=== PATIENT | female | born 1945 | race Hispanic/Latino ===

== ENCOUNTER 2017-05-23 10:18 | Inpatient (IN) | payer MEDICARE ==
--- NOTE | 2017-05-23 11:13 | C.PDOC ---
History Of Present Illness 71 y/o female brought in by EMS for evaluation s/p slip and fall on wet floor 5 days ago. Patient states she fell hitting her left hip and striking her head. No LOC. Now complaining of ongoing back pain and left hip pain. Patient is ambulatory with pain. Denies any incontinence of urine or stool, numbness of lower extremities, or focal weakness. PMD: Samina Albright - [facility] Time Seen by Provider: 05/23/17 10:31 Chief Complaint (Nursing): Trauma History Per: Patient History/Exam Limitations: no limitations Injury Occurred (Timing): Days Ago: (5) Past Medical History Reviewed: Historical Data, Nursing Documentation, Vital Signs Vital Signs: Last Vital Signs Temp 98.1 F 05/24/17 05:00 Pulse 91 H 05/24/17 08:00 Resp 20 05/23/17 23:05 BP 132/81 05/24/17 05:00 Pulse Ox 97 05/23/17 23:05 - Medical History PMH: HTN Other Surgeries: Eye surgery Family History: States: No Known Family Hx - Social History Hx Alcohol Use: No Hx Substance Use: No - Immunization History Hx Tetanus Toxoid Vaccination: No Hx Influenza Vaccination: No Hx Pneumococcal Vaccination: No Review Of Systems Except As Marked, All Systems Reviewed And Found Negative. Musculoskeletal: Positive for: Back Pain, Other (Hip Pain) Physical Exam - Physical Exam Appears: Non-toxic, No Acute Distress Skin: Normal Color, Warm, Dry Head: Atraumatic, Normacephalic Eye(s): bilateral: Normal Inspection, PERRL, EOMI Nose: Normal Oral Mucosa: Moist Neck: Normal ROM, No Midline Cervical Tenderness, No Paracervical Tenderness, Supple Chest: Symmetrical Cardiovascular: Rhythm Regular, No Murmur Respiratory: Normal Breath Sounds, No Accessory Muscle Use, No Other ( respiratory distress) Gastrointestinal/Abdominal: Soft, No Tenderness, No Distention Back: No Vertebral Tenderness, Paraspinal Tenderness (paralumbar), No Straight Leg Raising Extremity: Tenderness (to left lateral hip), No Pedal Edema, No Deformity, Other (Neurovascularly intact) Pulses: Left Dorsalis Pedis: Normal, Right Dorsalis Pedis: Normal Neurological/Psych: Oriented x3, Normal Speech, Normal Cranial Nerves, Normal Motor, Normal Sensation, No Other ED Course And Treatment - Laboratory Results Result Diagrams: 05/24/17 07:00 05/24/17 07:00 ECG: Interpreted By Me, Viewed By Me ECG Rhythm: Sinus Tachycardia Interpretation Of ECG: Sinus Tachycardia with LVH, poor R -wave progression, ST segment depression in Leads V4, V5, and V6 Rate From EC O2 Sat by Pulse Oximetry: 98 (RA) Pulse Ox Interpretation: Normal - Other Rad X-RAY LS SPINE X-Ray: Viewed By Me, Read By Radiologist Interpretation: FINDINGS: BONES: No evidence of acute compression fractures no retropulsed fragments. Vertebral bodies exhibit normal stature. Vertebral bodies and facets normally aligned. DISC SPACES: Mild multilevel degenerative spondylosis. Changes include minor disc space narrowing with endplate eburnation and small anterolateral osteophyte formation. Facets are mildly hypertrophic L5-S1 through the L3-L4 levels in decreasing order of severity. OTHER FINDINGS: Advanced vascular calcifications of the abdominal aorta and iliac arteries. Multiple calcifications overlying the left upper abdomen of uncertain etiology though likely vascular in origin as well. IMPRESSION: No acute fractures. Minor multilevel degenerative spondylosis. X-RAY L HIP/PELVIS X-Ray: Viewed By Me, Read By Radiologist Interpretation: FINDINGS: BONES: Current study reveals no evidence of acute displaced fracture nor dislocation. The osseous structures appear intact. Both femoral heads appropriately located within the respective acetabula. JOINTS: Mild arthritic changes both hip joints. SOFT TISSUES: Vascular calcifications are present. OTHER FINDINGS: None. IMPRESSION: No definitive radiographic evidence of acute displaced fracture nor dislocation. If symptoms persist or occult fracture suspected clinically consider followup CT scan and or MRI for further evaluation. - CT Scan/US CT Head Other Rad Studies (CT/US): Read By Radiologist, Radiology Report Reviewed CT/US Interpretation: FINDINGS: HEMORRHAGE: N no acute parenchymal, subarachnoid or extra-axial hemorrhage. BRAIN: Mild moderate diffuse/ confluent chronic periventricular white matter ischemic changes seen extending peripherally into the deep and subcortical white matter both cerebral hemispheres. Discrete chronic appearing infarct in the left posterior temporal subcortical white matter also felt be present. Additionally, there are multiple bilateral basal nuclei lacunar type infarcts which are age indeterminate ; clinical correlation recommended. . . Note that the possibility of hyperacute infarct cannot be excluded on this study. Mild moderate generalized volume loss. Vascular calcifications present. VENTRICLES : No obstructive hydrocephalus. CALVARIUM: There are no acute calvarial fracture seen. PARANASAL SINUSES: Unremarkable as visualized. No significant inflammatory changes. MASTOID AIR CELLS: Unremarkable as visualized. No inflammatory changes. OTHER FINDINGS: There is oblong appearance of the right globe; recommend ophthalmologic - fundoscopic examination two rule out glaucoma. . IMPRESSION: No acute intracranial hemorrhage. Moderate chronic white matter ischemic changes as above. 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 Followup studies recommended if acute infarct suspected clinically. Mild moderate generalized volume loss. There is oblong appearance of the right globe; recommend ophthalmologic - fundoscopic examination two rule out glaucoma. Medical Decision Making Medical Decision Making: Impression: Hip and Back Pain s/p Fall Time: 10:51 Initial Plan: * EKG * Creatine phosphokinase * Troponin I * CMP * CBC * Morphine 2 mg IVP * Clonidine 0.1 mg PO * X-ray LS spine * X-ray left hip w/ pelvis * CT Head W/O contrast 11:36 No acute findings on X-Ray, will order CT of the left hip 12:51 Notified of critical labs: (+) Troponin 0.444. Total CK is 90. 13:41 Case has been d/c with Dr. Guzman. Patient will be admitted to Telemetry. [employer] has been notified. Disposition Counseled Patient/Family Regarding: Studies Performed, Diagnosis - Disposition Disposition: HOSPITALIZED Disposition Time: 13:34 Condition: FAIR - POA Present On Arrival: Falls Or Trauma - Clinical Impression Clinical Impression: NSTEMI (non-ST elevated myocardial infarction) - Scribe Statement The provider has reviewed the documentation as recorded by the Scribe (Gifty Tracy) Provider Attestation: All medical record entries made by the Scribe were at my direction and personally dictated by me. I have reviewed the chart and agree that the record accurately reflects my personal performance of the history, physical exam, medical decision making, and the department course for this patient. I have also personally directed, reviewed, and agree with the discharge instructions and disposition. Decision To Admit - Pt Status Changed To: Hospital Disposition Of: Inpatient - Admit Certification Admit to Inpatient:: After my assessment, the patient will require hospitalization for at least two midnights. This is because of the severity of symptoms shown, intensity of services needed, and/or the medical risk in this patient being treated as an outpatient. - InPatient: Physician Admission Certification: I certify that this patient requires 2 or more midnights of care for the following reason:: Yes - . Bed Request Type: Telemetry Patient Diagnosis: NSTEMI (non-ST elevated myocardial infarction)
--- NOTE | 2017-05-23 11:23 | RAD ---
PROCEDURE: Lumbar spine 05/23/2017 3 standard views lumbar spine performed. HISTORY: Fall. COMPARISON: No prior. FINDINGS: BONES: No evidence of acute compression fractures no retropulsed fragments. Vertebral bodies exhibit normal stature. Vertebral bodies and facets normally aligned. DISC SPACES: Mild multilevel degenerative spondylosis. Changes include minor disc space narrowing with endplate eburnation and small anterolateral osteophyte formation. Facets are mildly hypertrophic L5-S1 through the L3-L4 levels in decreasing order of severity. OTHER FINDINGS: Advanced vascular calcifications of the abdominal aorta and iliac arteries. Multiple calcifications overlying the left upper abdomen of uncertain etiology though likely vascular in origin as well. IMPRESSION: No acute fractures. Minor multilevel degenerative spondylosis.
--- NOTE | 2017-05-23 11:27 | RAD ---
PROCEDURE: Left hip dated 05/23/2017 HISTORY: Status post fall COMPARISON: No prior FINDINGS: BONES: Current study reveals no evidence of acute displaced fracture nor dislocation. The osseous structures appear intact. Both femoral heads appropriately located within the respective acetabula. JOINTS: Mild arthritic changes both hip joints SOFT TISSUES: Vascular calcifications are present OTHER FINDINGS: None. IMPRESSION: No definitive radiographic evidence of acute displaced fracture nor dislocation. If symptoms persist or occult fracture suspected clinically consider followup CT scan and or MRI for further evaluation.
[2017-05-23 12:04] LABS: BASO # 0.1 K/uL (0.0-0.2); BASO % 0.5 % (0.0-2.0); EOS # 0.1 K/uL (0.0-0.7); EOS % 0.5 % (0.0-4.0); HEMOGLOBIN 16.3 g/dL (11.0-16.0); LYMPH % 7.2 % (20.0-40.0); MEAN CELL VOLUME 87.6 fL (81.0-99.0); MEAN CORPUSCULAR HEMOGLOBIN 29.4 pg (27.0-31.0); MEAN CORPUSCULAR HGB CONC 33.6 g/dL (33.0-37.0); MEAN PLATELET VOLUME 7.3 fL (7.2-11.7); MONO # 0.4 K/uL (0.0-0.8); MONO % 2.9 % (0.0-10.0); NEUT % 88.9 % (50.0-75.0); PLATELET COUNT 348 K/uL (130-400); RBC 5.55 Mil/uL (3.80-5.20); RED CELL DISTRIBUTION WIDTH 14.8 % (11.5-14.5); WHITE BLOOD COUNT 13.5 K/uL (4.8-10.8)
[2017-05-23 12:20] LABS: ALB/GLOB RATIO 0.9 (1.0-2.1); ALBUMIN 4.3 g/dL (3.5-5.0); CALCIUM 9.5 mg/dl (8.6-10.4)
[2017-05-23 12:23] LABS: BANDS 3 % (0-2); BASOPHIL 1 % (0-2); EOSINOPHIL 1 % (0-4); LYMPHOCYTE 6 % (20-40); MONOCYTE 3 % (0-10); NEUTROPHIL 86 % (50-75); TOTAL CELLS COUNTED 100
[2017-05-23 12:24] LABS: PLATELET ESTIMATE NORMAL (NORMAL)
--- NOTE | 2017-05-23 12:24 | CT ---
PROCEDURE: CT HEAD WITHOUT CONTRAST. HISTORY: dizziness COMPARISON: No prior is available for comparison TECHNIQUE: Axial computed tomography images were obtained through the head/brain without intravenous contrast. Radiation dose: Total exam DLP = 1641.55 mGy-cm. This CT exam was performed using one or more of the following dose reduction techniques: Automated exposure control, adjustment of the mA and/or kV according to patient size, and/or use of iterative reconstruction technique. FINDINGS: HEMORRHAGE: N no acute parenchymal, subarachnoid or extra-axial hemorrhage. BRAIN: Mild moderate diffuse/confluent chronic periventricular white matter ischemic changes seen extending peripherally into the deep and subcortical white matter both cerebral hemispheres. Discrete chronic appearing infarct in the left posterior temporal subcortical white matter also felt be present. Additionally, there are multiple bilateral basal nuclei lacunar type infarcts which are age indeterminate ; clinical correlation recommended. . . Note that the possibility of hyperacute infarct cannot be excluded on this study Mild moderate generalized volume loss. Vascular calcifications present. VENTRICLES: No obstructive hydrocephalus. CALVARIUM: There are no acute calvarial fracture seen. PARANASAL SINUSES: Unremarkable as visualized. No significant inflammatory changes. MASTOID AIR CELLS: Unremarkable as visualized. No inflammatory changes. OTHER FINDINGS: There is oblong appearance of the right globe; recommend ophthalmologic - fundoscopic examination two rule out glaucoma. . IMPRESSION: No acute intracranial hemorrhage. Moderate chronic white matter ischemic changes as above. 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 Followup studies recommended if acute infarct suspected clinically Mild moderate generalized volume loss. There is oblong appearance of the right globe; recommend ophthalmologic - fundoscopic examination two rule out glaucoma.
[2017-05-23 12:52] LABS: TROPONIN I 0.444 ng/mL (0.00-0.120)
--- NOTE | 2017-05-23 14:38 | CT ---
PROCEDURE: CT scan left hip dated 05/23/2017 HISTORY: Hip injury. COMPARISON: Comparison made with left hip radiographs obtained earlier same day TECHNIQUE: Contiguous axial images of the left hip were obtained. Coronal and sagittal reformats were generated. This CT exam was performed using one or more of the following dose reduction techniques: Automated exposure control, adjustment of the mA and/or kV according to patient size, and/or use of iterative reconstruction technique. Radiation dose: Total DLP = 195.18 mGy-cm. FINDINGS: BONES: Current study reveals no evidence of acute displaced fracture nor dislocation. The osseous structures intact. The visualized portions of the left iliac bone and left aspect of the sacrum appear intact. SI joints also intact. LEFT HIP JOINT: Left femoral head is appropriately located within the left acetabulum. No significant degenerative osteoarthritis. Probable small enthesophyte arising from the superior margin of the left greater trochanter. SOFT TISSUES: Soft tissues appear grossly unremarkable Urinary bladder is markedly distended. Uterus appears unremarkable. Few scattered colonic diverticula however no radiographic evidence acute diverticulitis. Vascular calcifications are present IMPRESSION: No evidence of acute displaced fracture nor dislocation.
[2017-05-23] MEDS ORDERED: Pneumococcal 23-Valent Vaccine IM ONE (15:32)
--- NOTE | 2017-05-23 16:01 | CP.PCM.HP ---
History of Present Illness - History of Present Illness History of Present Illness: HPI: Patient is a 71 year old female with a past medical history of hypertension, bilateral glaucoma, TIA, who presents to the ER with left hip pain. The patient states she slipped on a wet floor and fell 5 days ago. She landed on her left hip and the back of her head. The patient normally walks without phlebotomist medical lab assistant, however, for the past 5 days, she has required assistance due to the left hip pain. Patient states her daughter has been giving her 3 Tylenol per day, which has helped her pain. She states that the pain increases with movement and decreases with rest. Patient currently complains of weakness, rapid heart rate/palpitations, and nausea. In the ED, troponin was elevated at 0.444. Patient admitted for NSTEMI. She denies frequent falls, dizziness, headaches, new vision changes, dyspnea, chest pain, abdominal pain, vomiting, leg pain, leg swelling, dysuria, hematuria, diarrhea, constipation, hematochezia , melena. PMD: Dr. Moeller in [facility] (recently moved to [place]) PMHx: hypertension, bilateral glaucoma, TIA (patient states her doctor told her she had a stroke but does not have any symptoms- 6 years ago), basal cell skin cancer SurgHx: "eye surgery" (1967) FamHx: father- brain cancer SocHx: denies tobacco, alcohol, and drug use; lives in [place] with duaghter and grandson; retired. Allergies: Sulfa Medications: Clonidine 0.1mg PO HS, Amlodipine 5mg PO BID Present on Admission - Present on Admission Any Indicators Present on Admission: No Review of Systems - Constitutional Constitutional: Weakness. absent: Chills, Excessive Sweating, Fever, Headache - EENT Eyes: Other (no new changes in vision; glaucoma b/l; left eye vision intact) Ears: absent: Dizziness - Cardiovascular Cardiovascular: Palpitations, Rapid Heart Rate. absent: Chest Pain, Dyspnea, Edema, Leg Edema - Respiratory Respiratory: absent: Dyspnea - Gastrointestinal Gastrointestinal: Nausea. absent: Abdominal Pain, Constipation, Diarrhea, Hematemesis, Hematochezia, Vomiting - Genitourinary Genitourinary: absent: Dysuria, Hematuria, Urinary Frequency - Integumentary Integumentary: absent: Bleeding Lesions, Non-Healing Lesions, Sores, Unusual Bruising, Wounds - Neurological Neurological: Weakness. absent: Dizziness - Endocrine Endocrine: Palpitations - Hematologic/Lymphatic Hematologic: absent: Easy Bleeding, Easy Bruising Past Patient History - Past Social History Smoking Status: Never Smoked - CARDIAC Hx Cardiac Disorders: No Hx Angina: No Hx Atrial Fibrillation: No Hx Cardia Arrhythmia: No Hx Circulatory Problems: No Hx Congestive Heart Failure: No Hx Heart Attack: No Hx Heart Murmur: No Hx Heart Transplant: No Hx Hypercholesterolemia: No Hx Hypertension: Yes Hx Hypotension: No Hx Internal Defibrillator: No Hx Mitral Valve Prolapse: No Hx Pacemaker: No Hx Peripheral Edema: No Hx Peripheral Vascular Disease: No - PULMONARY Hx Asthma: Yes - HEENT Hx Glaucoma: Yes - INTEGUMENTARY Hx Basil Cell: Yes (forehead) - MUSCULOSKELETAL/RHEUMATOLOGICAL Hx Arthritis: No Hx Back Pain: Yes Hx Falls: Yes Hx Fractures: No - GASTROINTESTINAL HX Swallowing Problems: Yes - PSYCHIATRIC Hx Substance Use: No - SURGICAL HISTORY Hx Surgeries: Yes Hx Eye Surgery: Yes - ANESTHESIA Hx Anesthesia: Yes Hx Anesthesia Reactions: No Meds Allergies/Adverse Reactions: Allergies Allergy/AdvReac Type Severity Reaction Status Date / Time Sulfa (Sulfonamide Allergy Mild RASH Verified 05/23/17 11:49 Antibiotics) Physical Exam - Constitutional Appears: No Acute Distress, Chronically Ill - Head Exam Head Exam: ATRAUMATIC (no tenderness, skin lesions, ecchymosis noted), NORMAL INSPECTION - Eye Exam Eye Exam: EOMI (right eye). absent: Normal appearance (glaucoma b/l; blind in right eye) - ENT Exam ENT Exam: Mucous Membranes Dry Additional comments: poor dentition - Respiratory Exam Respiratory Exam: Clear to Auscultation Bilateral, NORMAL BREATHING PATTERN. absent: Rales, Rhonchi, Wheezes, Respiratory Distress - Cardiovascular Exam Cardiovascular Exam: Tachycardia, Irregular Rhythm, +S1, +S2 - GI/Abdominal Exam GI & Abdominal Exam: Normal Bowel Sounds, Soft. absent: Distended, Firm, Guarding, Tenderness - Extremities Exam Extremities exam: Positive for: pedal pulses present. Negative for: pedal edema , tenderness Additional comments: Bilateral LE: no tenderness, ecchymosis, erythema, abrasions, contusions and skin lesions noted. Full ROM of left LE; pain in left hip when actively and passively raising right LE; pulses present b/l. - Back Exam Back exam: absent: tenderness - Neurological Exam Neurological exam: Alert, CN II-XII Intact, Oriented x3 Additional comments: Oriented to person, place, time; technology lead intact; Full ROM and strength of UE (b/l) and left LE; decreased ROM of right LE due to pain in left hip. Finger to nose exam normal. - Psychiatric Exam Psychiatric exam: Flat Affect - Skin Skin Exam: Dry, Warm Results - Vital Signs Recent Vital Signs: Last Vital Signs Temp 98.0 F 05/23/17 13:09 Pulse 85 05/23/17 13:50 Resp 18 05/23/17 14:19 BP 163/102 H 05/23/17 13:50 Pulse Ox 98 05/23/17 14:16 - Labs Result Diagrams: 05/23/17 12:01 05/23/17 12:01 Labs: Laboratory Results - last 24 hr 05/23/17 05/23/17 12:01 12:01 WBC 13.5 H RBC 5.55 H Hgb 16.3 H Hct 48.6 H MCV 87.6 MCH 29.4 MCHC 33.6 RDW 14.8 H Plt Count 348 MPV 7.3 Neut % (Auto) 88.9 H Lymph % (Auto) 7.2 L Barber % (Auto) 2.9 Eos % (Auto) 0.5 Baso % (Auto) 0.5 Neut # (Auto) 12.0 H Lymph # (Auto) 1.0 Barber # (Auto) 0.4 Eos # (Auto) 0.1 Baso # (Auto) 0.1 Neutrophils % (Manual) 86 H Band Neutrophils % 3 H Lymphocytes % (Manual) 6 L Monocytes % (Manual) 3 Eosinophils % (Manual) 1 Basophils % (Manual) 1 Platelet Estimate Normal Sodium 142 Potassium 4.3 Chloride 102 Carbon Dioxide 20 L Anion Gap 25 H BUN 41 H Creatinine 1.7 H Est GFR ( Amer) 36 Est GFR (Non-Af Amer) 30 Random Glucose 100 Calcium 9.5 Total Bilirubin 1.9 H AST 673 H ALT 1271 H Alkaline Phosphatase 110 Total Creatine Kinase 90 Troponin I 0.4440 H* Total Protein 9.1 H Albumin 4.3 Globulin 4.8 H Albumin/Globulin Ratio 0.9 L Assessment & Plan (1) NSTEMI (non-ST elevated myocardial infarction) Assessment and Plan: Troponin 0.444; f/u troponins x2 EKG: sinus tachycardia @101bpm; LVH; f/u EKGx2 In the ED, ASA 325mg PO given Cardiology consulted- Dr. Mejias, help appreciated Continue to monitor on telemetry Echocardiogram: f/u report TSH/Free T4: f/u results Lipid panel: f/u results A1c: f/u results Ddimer: f/u results Crestor 20mg PO HS Amlodipine 5mg PO BID ASA 81mg PO daily Status: Acute (2) Fall Assessment and Plan: Head CT: No acute intracranial hemorrhage. Moderate chronic white matter ischemic changes as above. 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 Followup studies recommended if acute infarct suspected clinically; Mild moderate generalized volume loss. There is oblong appearance of the right globe; recommend ophthalmologic - fundoscopic examination two rule out glaucoma. Lumbar spine xray: No acute fractures. Minor multilevel degenerative spondylosis. Hip xray: No evidence of acute displaced fracture nor dislocation. Lower extremity CT: No evidence of acute displaced fracture nor dislocation. Status: Acute (3) Hypertension Assessment and Plan: Home medications: amlodipine 5mg PO BID, clonidine 0.1mg PO HS Continue amlodipine 5mg PO BID Continue to monitor Status: Acute (4) Leukocytosis Assessment and Plan: Leukocytosis w/bandemia at admission (WBC 13.5, bands 3) Afebrile UA: f/u results Urine cx: f/u results Blood cx: f/u results Status: Acute (5) Elevated transaminase level Assessment and Plan: At admission: AST/ALT: 673/1271 Hepatitis panel: f/u results HIV1/2: f/u results Status: Acute (6) Prophylactic measure Assessment and Plan: DVT: SCDs, Lovenox 40mg SC daily GI: Protonix 40mg PO daily Heart healthy diet PT/OT Status: Acute
[2017-05-23 17:59] LABS: T4 8.66 ug/dL (5.5-11.0)
[2017-05-23 18:15] LABS: HEPATITIS B SURFACE AG Negative (NEGATIVE)
[2017-05-23 18:21] LABS: HEPATITIS A IGM NEGATIVE (NEGATIVE); HEPATITIS B CORE AB NEGATIVE (NEGATIVE)
[2017-05-23 18:32] LABS: HEPATITIS C ANTIBODY NEGATIVE (NEGATIVE)
[2017-05-23 19:00] LABS: CK-MB 2.51 ng/mL (0.0-3.38); TROPONIN I 0.427 ng/mL (0.00-0.120)
[2017-05-23 22:40] LABS: CK-MB 2.1 ng/mL (0.0-3.38); TROPONIN I 0.398 ng/mL (0.00-0.120)
--- NOTE | 2017-05-24 07:23 | CP.PCM.PN ---
Subjective - Date & Time of Evaluation Date of Evaluation: 05/24/17 Time of Evaluation: 07:23 - Subjective Subjective: Medicine progress note for Dr. Guzman's service Patient was seen and examined at bedside in no acute distress. Patient reports she still has been in her left hip and cannot move due to the pain. She says her pain is decreased when she is at rest. Patient states she felt nauseas earlier, but currently she does not "because she is not moving around". Patient has little appetite- full tray of food in front of patient, only had a few sips of soup. Patient denies chest pain, abdominal pain, vomiting, fevers, headaches. Per nurse, patient has had very low urine output, bladder scan showed 600cc and patient was straight cathed (removed 500cc of urine). Objective - Vital Signs/Intake and Output Vital Signs (last 24 hours): Temp Pulse Resp BP Pulse Ox 98.1 F 97 H 20 132/81 97 05/24/17 05:00 05/24/17 05:00 05/23/17 23:05 05/24/17 05:00 05/23/17 23:05 Intake and Output: 05/24/17 05/24/17 06:59 18:59 Intake Total 120 Output Total 0 Balance 120 - Medications Medications: Current Medications Amlodipine Besylate (Norvasc) 5 mg PO BID [facility] Aspirin (Ecotrin) 81 mg PO DAILY [facility] Enoxaparin Sodium (Lovenox) 40 mg SC DAILY [facility] Morphine Sulfate (Morphine) 1 mg IVP Q4 PRN PRN Reason: Pain, moderate (4-7) Last Admin: 05/24/17 05:15 Dose: 1 mg Pantoprazole Sodium (Protonix Ec Tab) 40 mg PO DAILY [facility] Rosuvastatin Calcium (Crestor) 20 mg PO HS [facility] Last Admin: 05/23/17 21:46 Dose: 20 mg - Labs Labs: 05/23/17 12:01 05/23/17 12:01 - Additional Findings Additional findings: - Constitutional Appears: No Acute Distress, Chronically Ill - Head Exam Head Exam: ATRAUMATIC (no tenderness, skin lesions, ecchymosis noted), NORMAL INSPECTION - Eye Exam Eye Exam: EOMI (right eye). absent: Normal appearance (glaucoma b/l; blind in right eye) - ENT Exam ENT Exam: Mucous Membranes Dry Additional comments: poor dentition; hard of hearing b/l - Respiratory Exam Respiratory Exam: Clear to Auscultation Bilateral, NORMAL BREATHING PATTERN. absent: Rales, Rhonchi, Wheezes, Respiratory Distress - Cardiovascular Exam Cardiovascular Exam: Tachycardia, Irregular Rhythm, +S1, +S2 - GI/Abdominal Exam GI & Abdominal Exam: Normal Bowel Sounds, Soft. absent: Distended, Firm, Guarding, Tenderness - Extremities Exam Extremities exam: Positive for: pedal pulses present. Negative for: pedal edema , tenderness Additional comments: Bilateral LE: no tenderness, ecchymosis, erythema, abrasions, contusions and skin lesions noted. Full ROM of left LE; pain in left hip when actively and passively raising right LE; pulses present b/l. - Back Exam Back exam: absent: tenderness - Neurological Exam Neurological exam: Alert, CN II-XII Intact, Oriented x3 Additional comments: Oriented to person, place, time, president; staff readiness officer intact; Full ROM and strength of UE (b/l) and left LE; decreased ROM of right LE due to pain in left hip. Finger to nose exam normal. - Psychiatric Exam Psychiatric exam: Flat Affect - Skin Skin Exam: Dry, Warm Assessment and Plan (1) NSTEMI (non-ST elevated myocardial infarction) Status: Acute (2) Fall Status: Acute (3) Hypertension Status: Acute (4) Leukocytosis Status: Acute (5) Elevated transaminase level Status: Acute (6) Prophylactic measure Status: Acute - Assessment and Plan (Free Text) Plan: (1) NSTEMI (non-ST elevated myocardial infarction) Assessment and Plan: Troponin 0.444-->0.427-->0.3980 EKG: sinus tachycardia @101bpm; LVH In the ED, ASA 325mg PO given Cardiology consulted- Dr. Mejias, help appreciated Continue to monitor on telemetry TSH/Free T4: 2.69/8.66 Lipid panel: TG 162, Chol 151, LDL 49, HDL 44 A1c: 5.3 Ddimer: 1965 VQ scan: low probability of pE Echocardiogram: EF 40%, Mild global hypokinesis, LVH Patient scheduled for Stress test on 05/25 Crestor 20mg PO HS Amlodipine 5mg PO BID ASA 81mg PO daily (2) Fall Assessment and Plan: Orthopedic surgery consulted, Dr. Wei, help appreciated Head CT: No acute intracranial hemorrhage. Moderate chronic white matter ischemic changes as above. 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 Followup studies recommended if acute infarct suspected clinically; Mild moderate generalized volume loss. There is oblong appearance of the right globe; recommend ophthalmologic - fundoscopic examination two rule out glaucoma. Lumbar spine xray: No acute fractures. Minor multilevel degenerative spondylosis. Hip xray: No evidence of acute displaced fracture nor dislocation. Lower extremity CT: No evidence of acute displaced fracture nor dislocation. Brain MRI: f/u report (3) Hypertension Assessment and Plan: Home medications: amlodipine 5mg PO BID, clonidine 0.1mg PO HS Continue amlodipine 5mg PO BID Lisinopril 10mg PO daily (active 05/24/17) Continue to monitor (4) Leukocytosis Assessment and Plan: Leukocytosis w/bandemia at admission (WBC 13.5, bands 3) Afebrile UA: 3+ protein Urine cx: f/u results Blood cx: negative (5) Elevated transaminase level Assessment and Plan: Trending down At admission: AST/ALT: 673/1271 Hepatitis panel: negative HIV1/2: negative Acetaminophen level: <10 Abdominal US: fatter liver infiltrate; 1/5cm simple cyst in right lobe of liver ; 1cm simple cyst in lower pole of right kidney (6) Prophylactic measure Assessment and Plan: DVT: SCDs, Lovenox 40mg SC daily GI: Protonix 40mg PO daily Heart healthy diet PT/OT NS@75mls/hr
[2017-05-24 07:35] LABS: BASO # 0.1 K/uL (0.0-0.2); BASO % 0.9 % (0.0-2.0); EOS # 0.4 K/uL (0.0-0.7); MEAN CORPUSCULAR HEMOGLOBIN 29.6 pg (27.0-31.0); MEAN PLATELET VOLUME 7.5 fL (7.2-11.7); MONO # 0.5 K/uL (0.0-0.8); MONO % 4.1 % (0.0-10.0); NEUT # 10.2 K/uL (1.8-7.0); NRBC % 0.1 % (0.0-2.0); PLATELET COUNT 346 K/uL (130-400); RBC 4.83 Mil/uL (3.80-5.20); RED CELL DISTRIBUTION WIDTH 14.5 % (11.5-14.5); WHITE BLOOD COUNT 12.2 K/uL (4.8-10.8)
[2017-05-24 07:40] LABS: ALBUMIN 3.6 g/dL (3.5-5.0)
[2017-05-24 07:44] LABS: HEMOGLOBIN 14.3 g/dL (11.0-16.0)
[2017-05-24] MEDS: Sodium Chloride 0.9% 1,000 ML IV SCH ×2 (08:00→20:30)
[2017-05-24] MEDS ORDERED: Potassium Chloride 20 mEq ER Tab PO ONE (08:10)
[2017-05-24 08:27] LABS: BANDS 1 % (0-2); EOSINOPHIL 5 % (0-4); LYMPHOCYTE 9 % (20-40); MONOCYTE 2 % (0-10); NEUTROPHIL 83 % (50-75); PLATELET ESTIMATE NORMAL (NORMAL); TOTAL CELLS COUNTED 100
--- NOTE | 2017-05-24 08:43 | RAD ---
HISTORY: pre-vq scan COMPARISON: No prior. FINDINGS: LUNGS: No active pulmonary disease. PLEURA: No significant pleural effusion identified, no pneumothorax apparent. CARDIOVASCULAR: Normal. OSSEOUS STRUCTURES: No significant abnormalities. VISUALIZED UPPER ABDOMEN: Normal. OTHER FINDINGS: None. IMPRESSION: No active disease.
--- NOTE | 2017-05-24 09:50 | US ---
HISTORY: transaminitis COMPARISON: None. TECHNIQUE: Sonographic evaluation of the right upper quadrant of the abdomen. FINDINGS: LIVER: Measures 11.8 cm in length. Diffusely increased echogenicity of the liver parenchyma. Consistent with fatty infiltration. Smooth contour. Simple cyst right hepatic lobe, 1.5 x 1.3 x 1.5 cm. No solid mass. . No intrahepatic biliary ductal dilatation. GALLBLADDER: Unremarkable. No gallstones. COMMON BILE DUCT: Measures 3 mm. No stones. No dilatation. PANCREAS: Unremarkable as visualized. No mass. No ductal dilatation. RIGHT KIDNEY: Measures 10.2 cm in length. Normal echogenicity. No calculus or hydronephrosis. Lower pole simple cortical cyst, 1.0 cm. No solid mass. AORTA: No aneurysmal dilatation. IVC: Unremarkable. OTHER FINDINGS: None . IMPRESSION: Fatty infiltration of the liver. 1.5 cm simple cyst in right lobe of liver. 1.0 cm simple cyst lower pole right kidney. No evidence of cholelithiasis or biliary obstruction.
[2017-05-24] MEDS ORDERED: Enoxaparin 40 mg Syringe SC SCH (10:00)
[2017-05-24] MEDS: Pantoprazole 40 mg EC Tab PO SCH (11:34)
--- NOTE | 2017-05-24 12:43 | NM ---
COMPARISON: 05/24/2017 single-view chest TECHNIQUE: 11.4 mCi technetium 99-m Xe-133 Gas. 3.4 mCI technetium 99-m MAA administered intravenously. FINDINGS: VENTILATION COMPONENT: Normal. PERFUSION COMPONENT: Heterogeneous distribution of radionuclide. No geographic, segmental, lobar abnormalities apparent on the present examination. IMPRESSION: Low probability ventilation perfusion scan for pulmonary embolism.
[2017-05-24 21:02] LABS: URINE BILIRUBIN NEGATIVE (NEGATIVE); URINE BLOOD NEGATIVE (NEGATIVE); URINE CLARITY Clear (Clear); URINE COLOR Yellow (YELLOW); URINE GLUCOSE (UA) NORMAL (Normal); URINE LEUKOCYTE ESTERASE NEG Leu/uL (Negative); URINE PROTEIN 3+ mg/dL (NEGATIVE); URINE UROBILINOGEN NORMAL mg/dL (0.2-1.0)
--- NOTE | 2017-05-24 21:26 | CP.PCM.CON ---
History of Present Illness - History of Present Illness History of Present Illness: CC: Abnormal troponin HPI: Patient is a 71 year old female with a past medical history of hypertension, bilateral glaucoma, TIA, who presents to the ER with left hip pain. The patient states she slipped on a wet floor and fell 5 days ago. She landed on her left hip and the back of her head. The patient normally walks without child care assistant, however, for the past 5 days, she has required assistance due to the left hip pain. Patient states her daughter has been giving her 3 Tylenol per day, which has helped her pain. She states that the pain increases with movement and decreases with rest. Patient currently complains of weakness, rapid heart rate/palpitations, and nausea. In the ED, troponin was elevated at 0.444. Patient admitted for NSTEMI. She denies frequent falls, dizziness, headaches, new vision changes, dyspnea, chest pain, abdominal pain, vomiting, leg pain, leg swelling, dysuria, hematuria, diarrhea, constipation, hematochezia , melena. PMD: Dr. Moeller in [facility] (recently moved to [place]) PMHx: hypertension, bilateral glaucoma, TIA (patient states her doctor told her she had a stroke but does not have any symptoms- 6 years ago), basal cell skin cancer SurgHx: "eye surgery" (1967) FamHx: father- brain cancer SocHx: denies tobacco, alcohol, and drug use; lives in [place] with duaghter and grandson; retired. Allergies: Sulfa Medications: Clonidine 0.1mg PO HS, Amlodipine 5mg PO BID Review of Systems - Constitutional Constitutional: Weakness. absent: Chills, Excessive Sweating, Fever, Headache - EENT Eyes: Other (no new changes in vision; glaucoma b/l; left eye vision intact) Ears: absent: Dizziness - Cardiovascular Cardiovascular: Palpitations, Rapid Heart Rate. absent: Chest Pain, Dyspnea, Edema, Leg Edema - Respiratory Respiratory: absent: Dyspnea - Gastrointestinal Gastrointestinal: Nausea. absent: Abdominal Pain, Constipation, Diarrhea, Hematemesis, Hematochezia, Vomiting - Genitourinary Genitourinary: absent: Dysuria, Hematuria, Urinary Frequency - Integumentary Integumentary: absent: Bleeding Lesions, Non-Healing Lesions, Sores, Unusual Bruising, Wounds - Neurological Neurological: Weakness. absent: Dizziness - Endocrine Endocrine: Palpitations - Hematologic/Lymphatic Hematologic: absent: Easy Bleeding, Easy Bruising Physical Exam - Constitutional Appears: No Acute Distress, Chronically Ill - Head Exam Head Exam: ATRAUMATIC (no tenderness, skin lesions, ecchymosis noted), NORMAL INSPECTION - Eye Exam Eye Exam: EOMI (right eye). absent: Normal appearance (glaucoma b/l; blind in right eye) - ENT Exam ENT Exam: Mucous Membranes Dry Additional comments: poor dentition - Respiratory Exam Respiratory Exam: Clear to Auscultation Bilateral, NORMAL BREATHING PATTERN. absent: Rales, Rhonchi, Wheezes, Respiratory Distress - Cardiovascular Exam Cardiovascular Exam: Tachycardia, Irregular Rhythm, +S1, +S2 - GI/Abdominal Exam GI & Abdominal Exam: Normal Bowel Sounds, Soft. absent: Distended, Firm, Guarding, Tenderness - Extremities Exam Extremities exam: Positive for: pedal pulses present. Negative for: pedal edema , tenderness Additional comments: Bilateral LE: no tenderness, ecchymosis, erythema, abrasions, contusions and skin lesions noted. Full ROM of left LE; pain in left hip when actively and passively raising right LE; pulses present b/l. - Back Exam Back exam: absent: tenderness - Neurological Exam Neurological exam: Alert, CN II-XII Intact, Oriented x3 Additional comments: Oriented to person, place, time; chemical dependency nurse intact; Full ROM and strength of UE (b/l) and left LE; decreased ROM of right LE due to pain in left hip. Finger to nose exam normal. - Psychiatric Exam Psychiatric exam: Flat Affect - Skin Skin Exam: Dry, Warm Past Patient History - Past Social History Smoking Status: Never Smoked - CARDIAC Hx Hypertension: Yes - PULMONARY Hx Asthma: Yes - HEENT Hx Glaucoma: Yes - INTEGUMENTARY Hx Basil Cell: Yes (forehead) - MUSCULOSKELETAL/RHEUMATOLOGICAL Hx Arthritis: No Hx Back Pain: Yes Hx Falls: Yes Hx Fractures: No - GASTROINTESTINAL HX Swallowing Problems: Yes - PSYCHIATRIC Hx Substance Use: No - SURGICAL HISTORY Hx Surgeries: Yes Hx Eye Surgery: Yes - ANESTHESIA Hx Anesthesia: Yes Hx Anesthesia Reactions: No Meds Allergies/Adverse Reactions: Allergies Allergy/AdvReac Type Severity Reaction Status Date / Time Sulfa (Sulfonamide Allergy Mild RASH Verified 05/23/17 11:49 Antibiotics) - Medications Medications: Current Medications Amlodipine Besylate (Norvasc) 5 mg PO BID [facility] Last Admin: 05/24/17 17:44 Dose: 5 mg Aspirin (Ecotrin) 81 mg PO DAILY [facility] Last Admin: 05/24/17 11:35 Dose: 81 mg Enoxaparin Sodium (Lovenox) 40 mg SC DAILY [facility] Last Admin: 05/24/17 10:00 Dose: 40 mg Sodium Chloride (Sodium Chloride 0.9%) 1,000 mls @ 75 mls/hr IV .[id number] [facility] Last Admin: 05/24/17 08:00 Dose: 75 mls/hr Morphine Sulfate (Morphine) 1 mg IVP Q4 PRN PRN Reason: Pain, moderate (4-7) Last Admin: 05/24/17 17:45 Dose: 1 mg Pantoprazole Sodium (Protonix Ec Tab) 40 mg PO DAILY [facility] Last Admin: 05/24/17 11:34 Dose: 40 mg Rosuvastatin Calcium (Crestor) 20 mg PO [facility] Last Admin: 05/23/17 21:46 Dose: 20 mg Results - Vital Signs Recent Vital Signs: Last Vital Signs Temp 98.5 F 05/24/17 16:00 Pulse 98 H 05/24/17 16:00 Resp 18 05/24/17 16:00 BP 153/80 H 05/24/17 16:00 Pulse Ox 95 05/24/17 16:00 - Labs Result Diagrams: 05/24/17 07:00 05/24/17 07:00 Labs: Laboratory Results - last 24 hr 05/23/17 05/24/17 05/24/17 22:08 00:52 07:00 WBC 12.2 H RBC 4.83 Hgb 14.3 D Hct 42.0 MCV 87.0 MCH 29.6 MCHC 34.0 RDW 14.5 Plt Count 346 MPV 7.5 Neut % (Auto) 84.0 H Lymph % (Auto) 8.0 L Coles % (Auto) 4.1 Eos % (Auto) 3.0 Baso % (Auto) 0.9 Neut # (Auto) 10.2 H Lymph # (Auto) 1.0 Coles # (Auto) 0.5 Eos # (Auto) 0.4 Baso # (Auto) 0.1 Neutrophils % (Manual) 83 H Band Neutrophils % 1 Lymphocytes % (Manual) 9 L Monocytes % (Manual) 2 Eosinophils % (Manual) 5 H Platelet Estimate Normal Sodium Potassium Chloride Carbon Dioxide Anion Gap BUN Creatinine Est GFR ( Amer) Est GFR (Non-Af Amer) Random Glucose Calcium Total Bilirubin AST ALT Alkaline Phosphatase Total Creatine Kinase 56 CK-MB (Mass) 2.10 Troponin I 0.3980 H* Total Protein Albumin Globulin Albumin/Globulin Ratio Urine Color Urine Clarity Urine pH Ur Specific [place] Urine Protein Urine Glucose (UA) Urine Ketones Urine Blood Urine Nitrate Urine Bilirubin Urine Urobilinogen Ur Leukocyte Esterase Urine WBC (Auto) Urine RBC (Auto) Acetaminophen < 10.0 L 05/24/17 05/24/17 07:00 20:56 WBC RBC Hgb Hct MCV MCH MCHC RDW Plt Count MPV Neut % (Auto) Lymph % (Auto) Coles % (Auto) Eos % (Auto) Baso % (Auto) Neut # (Auto) Lymph # (Auto) Coles # (Auto) Eos # (Auto) Baso # (Auto) Neutrophils % (Manual) Band Neutrophils % Lymphocytes % (Manual) Monocytes % (Manual) Eosinophils % (Manual) Platelet Estimate Sodium 141 Potassium 3.5 L Chloride 105 Carbon Dioxide 22 Anion Gap 18 BUN 47 H Creatinine 1.5 H Est GFR ( Amer) 41 Est GFR (Non-Af Amer) 34 Random Glucose 100 Calcium 9.0 Total Bilirubin 1.2 AST 190 H D ALT 693 H D Alkaline Phosphatase 93 Total Creatine Kinase CK-MB (Mass) Troponin I Total Protein 7.3 Albumin 3.6 Globulin 3.7 Albumin/Globulin Ratio 1.0 Urine Color Yellow Urine Clarity Clear Urine pH 5.0 Ur Specific [place] 1.026 Urine Protein 3+ H Urine Glucose (UA) Normal Urine Ketones Trace Urine Blood Negative Urine Nitrate Negative Urine Bilirubin Negative Urine Urobilinogen Normal Ur Leukocyte Esterase Neg Urine WBC (Auto) < 1 Urine RBC (Auto) < 1 Acetaminophen Assessment & Plan - Assessment and Plan (Free Text) Assessment: (1) NSTEMI (non-ST elevated myocardial infarction) Assessment and Plan: Troponin 0.444-->0.427-->0.3980 EKG: sinus tachycardia @101bpm; LVH In the ED, ASA 325mg PO given Cardiology consulted- Dr. Mejias, help appreciated Continue to monitor on telemetry TSH/Free T4: 2.69/8.66 Lipid panel: TG 162, Chol 151, LDL 49, HDL 44 A1c: 5.3 Ddimer: 1964 VQ scan: low probability of pE Echocardiogram: f/u report Crestor 20mg PO HS Amlodipine 5mg PO BID ASA 81mg PO daily (2) Fall Assessment and Plan: Head CT: No acute intracranial hemorrhage. Moderate chronic white matter ischemic changes as above. 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 Followup studies recommended if acute infarct suspected clinically; Mild moderate generalized volume loss. There is oblong appearance of the right globe; recommend ophthalmologic - fundoscopic examination two rule out glaucoma. Lumbar spine xray: No acute fractures. Minor multilevel degenerative spondylosis. Hip xray: No evidence of acute displaced fracture nor dislocation. Lower extremity CT: No evidence of acute displaced fracture nor dislocation. Brain MRI: f/u report (3) Hypertension Assessment and Plan: Home medications: amlodipine 5mg PO BID, clonidine 0.1mg PO HS Continue amlodipine 5mg PO BID Continue to monitor (4) Leukocytosis Assessment and Plan: Leukocytosis w/bandemia at admission (WBC 13.5, bands 3) Afebrile UA: f/u results Urine cx: f/u results Blood cx: f/u results (5) Elevated transaminase level Assessment and Plan: Trending down At admission: AST/ALT: 673/1271 Hepatitis panel: negative HIV1/2: negative Acetaminophen level: <10 Abdominal US: fatter liver infiltrate; 1/5cm simple cyst in right lobe of liver ; 1cm simple cyst in lower pole of right kidney (6) Prophylactic measure Assessment and Plan: DVT: SCDs, Lovenox 40mg SC daily GI: Protonix 40mg PO daily Heart healthy diet PT/OT NS@75mls/hr ECHO: EF 40%, Mild global hypokinesis, LVH Trop abnormal. Normal CK Check Stress test in am
--- NOTE | 2017-05-25 02:36 | CARD ---
APPROVED REPORT EXAM: Two-dimensional and M-mode echocardiogram with Doppler and color Doppler. Other Information Quality : GoodRhythm : INDICATION CVA/TIA Non STEMI RISK FACTORS Hypertension 2D DIMENSIONS IVSd1.3 (0.7-1.1cm)LVDd3.3 (3.9-5.9cm) PWd1.5 (0.7-1.1cm)RVOT Diameter1.5 cm LVDs2.6 (2.5-4.0cm)FS (%) 22.6 % LVEF (%)46.6 (>50%) M-Mode DIMENSIONS Left Atrium (MM)3.02 (2.5-4.0cm)Aortic Root2.92 (2.2-3.7cm) Aortic Cusp Exc.1.45 (1.5-2.0cm) Mitral Valve MV E Niqxkuuz66.4cm/sMV A Avqzuywc49.2cm/sE/A ratio0.5 TDI E/Lateral E'0.0E/Medial E'0.0 Pulmonary Valve PV Peak Jfrljvko637.9cm/sPV Peak Grad.23mmHgRVOT VTI32.2cm Tricuspid Valve TR Peak Znhebjmi248xu/sTR Peak Gr.[id number] LEFT VENTRICLE The left ventricle is normal size. There is mild concentric left ventricular hypertrophy. Left ventricle systolic function is normal. The Ejection Fraction is 50-55%. There is normal LV segmental wall motion. Tissue Doppler imaging reveals abnormal left ventricular diastolic dysfunction. RIGHT VENTRICLE The right ventricle is normal size. There is normal right ventricular wall thickness. The right ventricular systolic function is normal. ATRIA The left atrium size is normal. The right atrium size is normal. The interatrial septum is intact with no evidence for an atrial septal defect. AORTIC VALVE The aortic valve is normal in structure. No aortic regurgitation is present. There is no aortic valvular stenosis. There is no aortic valvular vegetation. MITRAL VALVE The mitral valve is normal in structure. There is no evidence of mitral valve prolapse. There is no mitral valve stenosis. Mitral regurgitation is mild. TRICUSPID VALVE The tricuspid valve is normal in structure. There is mild tricuspid regurgitation. Right ventricular systolic pressure is estimated at 40-50 mmHg. There is mild-moderate pulmonary hypertension. PULMONIC VALVE The pulmonic valve is not well visualized. There is no pulmonic valvular regurgitation. GREAT VESSELS The aortic root is normal in size. PERICARDIAL EFFUSION There is no significant pericardial effusion. <Conclusion> Left ventricle systolic function is normal. The Ejection Fraction is 50-55%. Hypertensive heart disease. Diastolic dysfunction. No aortic regurgitation is present. Mitral regurgitation is mild. There is mild tricuspid regurgitation. There is mild-moderate pulmonary hypertension. There is no pulmonic valvular regurgitation.
--- NOTE | 2017-05-25 06:58 | CP.PCM.PN ---
Subjective - Date & Time of Evaluation Date of Evaluation: 05/25/17 Time of Evaluation: 06:58 - Subjective Subjective: Medicine progress note for Dr. Guzman's service Patient was seen and examined at bedside in no acute distress. Patient reports still having pain in her left hip. Patient states the pain is tolerable if she does not move. Patient denies chest pain, dyspnea, abdominal pain, nausea, vomiting, fevers, headaches, leg pain/swelling. Per nursing, overnight, patient had was straight caths once, had an episode of incontinence in the morning, and had a BM. Patient states she is not urinating often due to her hip pain. Objective - Vital Signs/Intake and Output Vital Signs (last 24 hours): Temp Pulse Resp BP Pulse Ox 99.7 F H 109 H 20 153/80 H 94 L 05/25/17 00:00 05/25/17 00:00 05/25/17 00:00 05/24/17 16:00 05/25/17 00:00 Intake and Output: 05/24/17 05/25/17 18:59 06:59 Intake Total 800 Output Total 500 Balance 300 - Medications Medications: Current Medications Amlodipine Besylate (Norvasc) 5 mg PO BID [facility] Last Admin: 05/24/17 17:44 Dose: 5 mg Aspirin (Ecotrin) 81 mg PO DAILY [facility] Last Admin: 05/24/17 11:35 Dose: 81 mg Enoxaparin Sodium (Lovenox) 40 mg SC DAILY [facility] Last Admin: 05/24/17 10:00 Dose: 40 mg Sodium Chloride (Sodium Chloride 0.9%) 1,000 mls @ 75 mls/hr IV .[id number] [facility] Last Admin: 05/24/17 20:30 Dose: Not Given Lisinopril (Zestril) 10 mg PO DAILY [facility] Morphine Sulfate (Morphine) 1 mg IVP Q4 PRN PRN Reason: Pain, moderate (4-7) Last Admin: 05/25/17 00:24 Dose: 1 mg Pantoprazole Sodium (Protonix Ec Tab) 40 mg PO DAILY [facility] Last Admin: 05/24/17 11:34 Dose: 40 mg Rosuvastatin Calcium (Crestor) 20 mg PO HS [facility] Last Admin: 05/24/17 22:30 Dose: 20 mg - Labs Labs: 05/24/17 07:00 05/24/17 07:00 - Additional Findings Additional findings: - Constitutional Appears: No Acute Distress, Chronically Ill - Head Exam Head Exam: ATRAUMATIC (no tenderness, skin lesions, ecchymosis noted), NORMAL INSPECTION - Eye Exam Eye Exam: EOMI (right eye). absent: Normal appearance (glaucoma b/l; blind in right eye) - ENT Exam ENT Exam: Mucous Membranes Dry Additional comments: poor dentition; hard of hearing b/l - Respiratory Exam Respiratory Exam: Clear to Auscultation Bilateral, NORMAL BREATHING PATTERN. absent: Rales, Rhonchi, Wheezes, Respiratory Distress - Cardiovascular Exam Cardiovascular Exam: Tachycardia, Irregular Rhythm, +S1, +S2 - GI/Abdominal Exam GI & Abdominal Exam: Normal Bowel Sounds, Soft. absent: Distended, Firm, Guarding, Tenderness - Extremities Exam Extremities exam: Positive for: pedal pulses present. Negative for: pedal edema , tenderness Additional comments: Bilateral LE: no tenderness, ecchymosis, erythema, abrasions, contusions and skin lesions noted. Full ROM of left LE; pain in left hip when actively and passively raising right LE; pulses present b/l. - Back Exam Back exam: absent: tenderness - Neurological Exam Neurological exam: Alert, CN II-XII Intact, Oriented x3 Additional comments: Oriented to person, place, time, president; tobacco weigher intact; Full ROM and strength of UE (b/l) and left LE; decreased ROM of right LE due to pain in left hip. Finger to nose exam normal. - Psychiatric Exam Psychiatric exam: Flat Affect - Skin Skin Exam: Dry, Warm Assessment and Plan (1) NSTEMI (non-ST elevated myocardial infarction) Status: Acute (2) Fall Status: Acute (3) Hypertension Status: Acute (4) Leukocytosis Status: Acute (5) Elevated transaminase level Status: Acute (6) Prophylactic measure Status: Acute - Assessment and Plan (Free Text) Plan: (1) NSTEMI (non-ST elevated myocardial infarction) Assessment and Plan: Troponin 0.444-->0.427-->0.3980 EKG: sinus tachycardia @101bpm; LVH In the ED, ASA 325mg PO given Cardiology consulted- Dr. Mejias, help appreciated Continue to monitor on telemetry TSH/Free T4: 2.69/8.66 Lipid panel: TG 162, Chol 151, LDL 49, HDL 44 A1c: 5.3 Ddimer: 1964 VQ scan: low probability of pE Echocardiogram: EF 40%, Mild global hypokinesis, LVH Patient scheduled for cardiac cath on 05/28/[address] Randell Montenegro 20mg PO HS Amlodipine 5mg PO BID ASA 81mg PO daily (2) Fall Assessment and Plan: Orthopedic surgery consulted, Dr. Wei, help appreciated * Per ortho, patient has a Nondisplaced left sacral ala fracture. Possible right sacral ala fracture. Suspect fracture, nondisplaced, involving right- sided pubic symphysis. * sacral and ramus fx are non operative, conservative mgmt with pain medication , VTE proph, and progressive mobilization and ambulation training Head CT: No acute intracranial hemorrhage. Moderate chronic white matter ischemic changes as above. 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 Followup studies recommended if acute infarct suspected clinically; Mild moderate generalized volume loss. There is oblong appearance of the right globe; recommend ophthalmologic - fundoscopic examination two rule out glaucoma. Lumbar spine xray: No acute fractures. Minor multilevel degenerative spondylosis. Hip xray: No evidence of acute displaced fracture nor dislocation. Lower extremity CT: No evidence of acute displaced fracture nor dislocation. Brain MRI: no acute intracranial abnormality; no evidence for acute infarction; moderate chronic microangiopathic changes and mild age-related global parenchymal volume loss. (3) Hypertension Assessment and Plan: Home medications: amlodipine 5mg PO BID, clonidine 0.1mg PO HS Continue amlodipine 5mg PO BID Lisinopril 10mg PO daily (active 05/24/17) Continue to monitor (4) Leukocytosis Assessment and Plan: Leukocytosis w/bandemia at admission (WBC 13.5, bands 3) Afebrile UA: 3+ protein Urine cx: f/u results Blood cx: negative (5) Elevated transaminase level Assessment and Plan: Trending down At admission: AST/ALT: 673/1271 Hepatitis panel: negative HIV1/2: negative Acetaminophen level: <10 Abdominal US: fatter liver infiltrate; 1/5cm simple cyst in right lobe of liver ; 1cm simple cyst in lower pole of right kidney (6) Prophylactic measure Assessment and Plan: DVT: SCDs, Lovenox 40mg SC daily GI: Protonix 40mg PO daily Heart healthy diet PT/OT NS@75mls/hr Disposition: Patient scheduled for cardiac cath on 05/28/[address] Mejias
[2017-05-25 07:25] LABS: BASO % 0.7 % (0.0-2.0); EOS # 0.3 K/uL (0.0-0.7); EOS % 6.6 % (0.0-4.0); HEMOGLOBIN 12.9 g/dL (11.0-16.0); LYMPH # 0.5 K/uL (1.0-4.3); LYMPH % 9.1 % (20.0-40.0); MEAN CELL VOLUME 87.3 fL (81.0-99.0); MEAN CORPUSCULAR HEMOGLOBIN 29.8 pg (27.0-31.0); MEAN CORPUSCULAR HGB CONC 34.2 g/dL (33.0-37.0); MEAN PLATELET VOLUME 7.4 fL (7.2-11.7); MONO # 0.5 K/uL (0.0-0.8); MONO % 9.4 % (0.0-10.0); NEUT # 3.9 K/uL (1.8-7.0); NEUT % 74.2 % (50.0-75.0); NRBC % 0.2 % (0.0-2.0); PLATELET COUNT 259 K/uL (130-400); RBC 4.31 Mil/uL (3.80-5.20); RED CELL DISTRIBUTION WIDTH 14.6 % (11.5-14.5)
[2017-05-25 07:38] LABS: WHITE BLOOD COUNT 5.2 K/uL (4.8-10.8)
[2017-05-25 08:07] LABS: ALB/GLOB RATIO 0.9 (1.0-2.1); ALBUMIN 3.2 g/dL (3.5-5.0); CALCIUM 7.7 mg/dl (8.6-10.4)
[2017-05-25 08:46] LABS: EOSINOPHIL 8 % (0-4); MONOCYTE 7 % (0-10); TOTAL CELLS COUNTED 100
[2017-05-25 08:47] LABS: LYMPHOCYTE 9 % (20-40); NEUTROPHIL 76 % (50-75); PLATELET ESTIMATE NORMAL (NORMAL)
[2017-05-25] MEDS ORDERED: Enoxaparin 30 mg Syringe SC SCH (10:00)
[2017-05-25] MEDS: Pantoprazole 40 mg EC Tab PO SCH (11:00)
[2017-05-25] MEDS: Enoxaparin 40 mg Syringe SC SCH ×2 (11:18→22:28)
[2017-05-25] MEDS: Sodium Chloride 0.9% 1,000 ML IV SCH (11:19)
--- NOTE | 2017-05-25 11:19 | CP.PCM.CON ---
History of Present Illness - History of Present Illness History of Present Illness: Orthopedic consultation Dr. 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 She says prior to the fall she walks without assistive device. When asked to localize her pain, she points to iliac crest and posterior to this area. Also complains of back pain. Denies neck pain, pain in upper extremities or knees/ankles. Denies numbness/ tingling. Patient found to have NSTEMI on admission, went to [facility] this am. Review of Systems - Review of Systems All systems: reviewed and no additional remarkable complaints except - Musculoskeletal Musculoskeletal: As Per HPI - Neurological Neurological: As Per HPI - Hematologic/Lymphatic Hematologic: absent: As Per HPI, Easy Bleeding, Easy Bruising, Lymphadenopathy, Other Past Patient History - Past Medical History & Family History Past Medical History?: Yes Past Family History: Reviewed and not pertinent - Past Social History Smoking Status: Never Smoked - CARDIAC Hx Hypertension: Yes - PULMONARY Hx Asthma: Yes - HEENT Hx Glaucoma: Yes - INTEGUMENTARY Hx Basil Cell: Yes (forehead) - MUSCULOSKELETAL/RHEUMATOLOGICAL Hx Arthritis: No Hx Back Pain: Yes Hx Falls: Yes Hx Fractures: No - GASTROINTESTINAL HX Swallowing Problems: Yes - PSYCHIATRIC Hx Substance Use: No - SURGICAL HISTORY Hx Surgeries: Yes Hx Eye Surgery: Yes - ANESTHESIA Hx Anesthesia: Yes Hx Anesthesia Reactions: No Meds Allergies/Adverse Reactions: Allergies Allergy/AdvReac Type Severity Reaction Status Date / Time Sulfa (Sulfonamide Allergy Mild RASH Verified 05/23/17 11:49 Antibiotics) - Medications Medications: Current Medications Amlodipine Besylate (Norvasc) 5 mg PO BID [facility] Last Admin: 05/24/17 17:44 Dose: 5 mg Aspirin (Ecotrin) 81 mg PO DAILY [facility] Last Admin: 05/24/17 11:35 Dose: 81 mg Enoxaparin Sodium (Lovenox) 40 mg SC Q12H [facility] Sodium Chloride (Sodium Chloride 0.9%) 1,000 mls @ 75 mls/hr IV .[id number] [facility] Last Admin: 05/24/17 20:30 Dose: Not Given Lisinopril (Zestril) 10 mg PO DAILY [facility] Morphine Sulfate (Morphine) 1 mg IVP Q4 PRN PRN Reason: Pain, moderate (4-7) Last Admin: 05/25/17 00:24 Dose: 1 mg Pantoprazole Sodium (Protonix Ec Tab) 40 mg PO DAILY [facility] Last Admin: 05/24/17 11:34 Dose: 40 mg Rosuvastatin Calcium (Crestor) 20 mg PO HS [facility] Last Admin: 05/24/17 22:30 Dose: 20 mg Physical Exam - Constitutional Appears: Well, In Acute Distress Additional comments: during transfers complains of severe pain - Head Exam Head Exam: ATRAUMATIC - Neck Exam Neck exam: Positive for: Full Rom, Normal Inspection - Cardiovascular Exam Additional comments: +DP/PT pulses BLE - Expanded Lower Extremities Exam Left Hip exam: full ROM (no pain with hip int/ext rotation log roll, traction bilaterally, with further left or right hip flexion complains of back pain on left side), normal inspection Upper Leg exam: normal inspection Knee exam: full ROM, normal inspection Lower Leg Exam: normal inspection Ankle exam: FULL ROM, NORMAL INSPECTION Neuro vacular tendon exam: no vascular compromise - Back Exam Additional comments: TTP left SI joint/sacrum/gluteal area TTP to public symphysis and both sides of rami near symphysis - Neurological Exam Neurological exam: Alert, Oriented x3 - Psychiatric Exam Psychiatric exam: Anxious - Skin Skin Exam: Dry, Intact, Normal Color, Warm Results - Vital Signs Recent Vital Signs: Last Vital Signs Temp 99.7 F H 05/25/17 00:00 Pulse 108 H 05/25/17 06:45 Resp 20 05/25/17 00:00 BP 153/80 H 05/24/17 16:00 Pulse Ox 94 L 05/25/17 00:00 - Labs Result Diagrams: 05/25/17 06:59 05/25/17 06:59 Labs: Laboratory Results - last 24 hr 05/24/17 05/25/17 05/25/17 20:56 06:59 06:59 WBC 5.2 D RBC 4.31 Hgb 12.9 Hct 37.6 MCV 87.3 MCH 29.8 MCHC 34.2 RDW 14.6 H Plt Count 259 MPV 7.4 Neut % (Auto) 74.2 Lymph % (Auto) 9.1 L [place] % (Auto) 9.4 Eos % (Auto) 6.6 H Baso % (Auto) 0.7 Neut # (Auto) 3.9 Lymph # (Auto) 0.5 L [place] # (Auto) 0.5 Eos # (Auto) 0.3 Baso # (Auto) 0.0 Neutrophils % (Manual) 76 H Lymphocytes % (Manual) 9 L Monocytes % (Manual) 7 Eosinophils % (Manual) 8 H Platelet Estimate Normal Sodium 140 Potassium 4.2 Chloride 106 Carbon Dioxide 22 Anion Gap 17 BUN 32 H Creatinine 1.2 Est GFR ( Amer) 53 Est GFR (Non-Af Amer) 44 Random Glucose 152 H Calcium 7.7 L Phosphorus 2.0 L Magnesium 1.9 Total Bilirubin 1.3 AST 70 H D ALT 406 H D Alkaline Phosphatase 101 Total Protein 6.8 Albumin 3.2 L Globulin 3.6 Albumin/Globulin Ratio 0.9 L Urine Color Yellow Urine Clarity Clear Urine pH 5.0 Ur Specific [place] 1.026 Urine Protein 3+ H Urine Glucose (UA) Normal Urine Ketones Trace Urine Blood Negative Urine Nitrate Negative Urine Bilirubin Negative Urine Urobilinogen Normal Ur Leukocyte Esterase Neg Urine WBC (Auto) < 1 Urine RBC (Auto) < 1 - Impressions Impression: atient Name / ID : KAT YAN / [id number] Exam Date : 05/23/2017 10:52:24 ( Approved ) Study Comment : Sex / Age : F / 71Y Creator : Paresh Ontiveros MD Dictator : Paresh Ontiveros MD Sheet Metal Layout Mechanic : Dental Surgeon : Paresh Ontiveros MD Approver2 : Report Date : 05/23/2017 11:25:46 My Comment : PROCEDURE: Left hip dated 05/23/2017 HISTORY: Status post fall COMPARISON: No prior FINDINGS: BONES: Current study reveals no evidence of acute displaced fracture nor dislocation. The osseous structures appear intact. Both femoral heads appropriately located within the respective acetabula. JOINTS: Mild arthritic changes both hip joints SOFT TISSUES: Vascular calcifications are present OTHER FINDINGS: None. IMPRESSION: No definitive radiographic evidence of acute displaced fracture nor dislocation. If symptoms persist or occult fracture suspected clinically consider followup CT scan and or MRI for further evaluation. Patient Name / ID : KAT YAN / [id number] Exam Date : 05/23/2017 10:56:25 ( Approved ) Study Comment : Sex / Age : F / Y Creator : Paresh Ontiveros MD Dictator : Paresh Ontiveros MD Sheet Metal Layout Mechanic : Dental Surgeon : Paersh Ontiveros MD Approver2 : Report Date : 05/23/2017 11:22:00 My Comment : PROCEDURE: Lumbar spine 05/23/2017 3 standard views lumbar spine performed. HISTORY: Fall. COMPARISON: No prior. FINDINGS: BONES: No evidence of acute compression fractures no retropulsed fragments. Vertebral bodies exhibit normal stature. Vertebral bodies and facets normally aligned. DISC SPACES: Mild multilevel degenerative spondylosis. Changes include minor disc space narrowing with endplate eburnation and small anterolateral osteophyte formation. Facets are mildly hypertrophic L5-S1 through the L3-L4 levels in decreasing order of severity. OTHER FINDINGS: Advanced vascular calcifications of the abdominal aorta and iliac arteries. Multiple calcifications overlying the left upper abdomen of uncertain etiology though likely vascular in origin as well. IMPRESSION: No acute fractures. Minor multilevel degenerative spondylosis. Patient Name / ID : KAT YAN / [id number] Exam Date : 05/23/2017 14:08:11 ( Approved ) Study Comment : Sex / Age : F Y Creator : Paresh Ontiveros MD Dictator : Paresh Ontiveros MD Sheet Metal Layout Mechanic : Dental Surgeon : Paresh Ontiveros MD Approver2 : Report Date : 05/23/2017 14:36:34 My Comment : PROCEDURE: CT scan left hip dated 05/23/2017 HISTORY: Hip injury. COMPARISON: Comparison made with left hip radiographs obtained earlier same day TECHNIQUE: Contiguous axial images of the left hip were obtained. Coronal and sagittal reformats were generated. This CT exam was performed using one or more of the following dose reduction techniques: Automated exposure control, adjustment of the mA and/or kV according to patient size, and/or use of iterative reconstruction technique. Radiation dose: Total DLP = 195.18 mGy-cm. FINDINGS: BONES: Current study reveals no evidence of acute displaced fracture nor dislocation. The osseous structures intact. The visualized portions of the left iliac bone and left aspect of the sacrum appear intact. SI joints also intact. LEFT HIP JOINT: Left femoral head is appropriately located within the left acetabulum. No significant degenerative osteoarthritis. Probable small enthesophyte arising from the superior margin of the left greater trochanter. SOFT TISSUES: Soft tissues appear grossly unremarkable Urinary bladder is markedly distended. Uterus appears unremarkable. Few scattered colonic diverticula however no radiographic evidence acute diverticulitis. Vascular calcifications are present IMPRESSION: No evidence of acute displaced fracture nor dislocation. Assessment & Plan (1) Fracture of sacrum Assessment and Plan: CT of left hip appreciated, as well as xrays Appears to be fracture of left side of sacrum noted on CT scan, minimally displaced, also questionable right superior ramus fracture near symphysis series 602 image 10 on sag images. Will check CT pelvis to full visualize sacrum and rami No hip fracture suggested on imaging, and patients symptoms and location of pain are consistent with sacral fracture (no groin pain) VTE proph PT/OT will follow up CT sacral and ramus fx are non operative, conservative mgmt with pain medication, VTE proph, and progressive mobilization and ambulation training d/w Dr. Wei, agrees with above Status: Acute (2) Fracture of right superior pubic ramus Status: Acute (3) Fall Status: Acute
--- NOTE | 2017-05-25 14:07 | CT ---
PROCEDURE: CT pelvis HISTORY: fall: L sacrum fx, r/o R ramus fx COMPARISON: Not available TECHNIQUE: 2.5 mm contiguous axial sections were acquired through the pelvis. No intravenous contrast was administered this examination. Total exam DLP: 183.38 mGy-cm. This CT exam was performed using 1 or more of the following dose reduction techniques: Automated exposure control, adjustment of the mA and/or kV according to patient size, and/or use of iterative reconstruction technique. FINDINGS: There is a nondisplaced fracture of the left sacral ala. This is best demonstrated on series 601, image 65, and on series 602, image 130. There is suspicion of a right sacral ala fracture, also nondisplaced. This is best demonstrated on series 601, image 68. The sacral foramina appear grossly intact. The sacroiliac joints are preserved. There is suspicion of a nondisplaced fracture of the right side of the symphysis pubis (series 601, image 109 and series 602, image 103). No other pelvic fracture is evident. Both hips are unremarkable in appearance. There is no soft tissue hematoma identified. The pelvic soft tissue contents are unremarkable in appearance. No abnormal bowel loops are appreciated. The urinary bladder is intact. A normal postmenopausal uterus is evident. IMPRESSION: Nondisplaced left sacral ala fracture. Possible right sacral ala fracture. Suspect fracture, nondisplaced, involving right-sided pubic symphysis.
--- NOTE | 2017-05-25 15:18 | MRI ---
PROCEDURE: MRI BRAIN WITHOUT CONTRAST HISTORY: hx of fall, hx of tia COMPARISON: Noncontrast head CT from 05/23/2017. TECHNIQUE: Multiplanar, multisequence MR images of the brain were obtained without intravenous contrast enhancement. FINDINGS: HEMORRHAGE: None DWI: No evidence of an acute or early subacute infarction. BRAIN PARENCHYMA: There are moderate chronic microangiopathic changes. There is no mass, mass effect or abnormal extra-axial fluid collection. The midline sagittal structures are normal. There is a 2.1 x 2.5 cm T1 hypo intense and T2/FLAIR Iso to hypointense dural-based extra-axial in the right lateral posterior fossa with mild mass effect on the right cerebellar hemisphere without evidence of vasogenic edema or midline shift. The mass also demonstrates mild restricted diffusion. VENTRICLES: There is mild age-related global parenchymal volume loss and proportionate enlargement of the ventricles and cortical sulci. CRANIUM: There is normal bone marrow signal pattern. ORBITS: Stable oblong appearance of the right lobe. The left globe is normal. PARANASAL SINUSES/MASTOIDS: Predominantly clear. VASCULAR SYSTEM: There are normal signal voids in the larger intracranial arteries. . OTHER FINDINGS: None. IMPRESSION: 1. No acute intracranial abnormality. Specifically, no evidence for acute infarction. 2. Moderate chronic microangiopathic changes and mild age-related global parenchymal volume loss. 3. 2.1 x 2.5 cm right lateral posterior fossa dural-based extra-axial mass is statistically most compatible with a meningioma with resultant mild mass effect on the right cerebellar hemisphere without evidence for vasogenic edema or midline shift.
--- NOTE | 2017-05-25 22:17 | CP.PCM.PN ---
Subjective - Date & Time of Evaluation Date of Evaluation: 05/25/17 Time of Evaluation: 16:00 - Subjective Subjective: Patient with episodes of Non sustained runs of V Tach Denies chest pain and dyspnea Review of Systems - Constitutional Constitutional: Weakness. absent: Chills, Excessive Sweating, Fever, Headache - EENT Eyes: Other (no new changes in vision; glaucoma b/l; left eye vision intact) Ears: absent: Dizziness - Cardiovascular Cardiovascular: Palpitations, Rapid Heart Rate. absent: Chest Pain, Dyspnea, Edema, Leg Edema - Respiratory Respiratory: absent: Dyspnea - Gastrointestinal Gastrointestinal: Nausea. absent: Abdominal Pain, Constipation, Diarrhea, Hematemesis, Hematochezia, Vomiting - Genitourinary Genitourinary: absent: Dysuria, Hematuria, Urinary Frequency - Integumentary Integumentary: absent: Bleeding Lesions, Non-Healing Lesions, Sores, Unusual Bruising, Wounds - Neurological Neurological: Weakness. absent: Dizziness - Endocrine Endocrine: Palpitations - Hematologic/Lymphatic Hematologic: absent: Easy Bleeding, Easy Bruising Physical Exam - Constitutional Appears: No Acute Distress, Chronically Ill - Head Exam Head Exam: ATRAUMATIC (no tenderness, skin lesions, ecchymosis noted), NORMAL INSPECTION - Eye Exam Eye Exam: EOMI (right eye). absent: Normal appearance (glaucoma b/l; blind in right eye) - ENT Exam ENT Exam: Mucous Membranes Dry Additional comments: poor dentition - Respiratory Exam Respiratory Exam: Clear to Auscultation Bilateral, NORMAL BREATHING PATTERN. absent: Rales, Rhonchi, Wheezes, Respiratory Distress - Cardiovascular Exam Cardiovascular Exam: Tachycardia, Irregular Rhythm, +S1, +S2 - GI/Abdominal Exam GI & Abdominal Exam: Normal Bowel Sounds, Soft. absent: Distended, Firm, Guarding, Tenderness - Extremities Exam Extremities exam: Positive for: pedal pulses present. Negative for: pedal edema , tenderness Additional comments: Bilateral LE: no tenderness, ecchymosis, erythema, abrasions, contusions and skin lesions noted. Full ROM of left LE; pain in left hip when actively and passively raising right LE; pulses present b/l. - Back Exam Back exam: absent: tenderness - Neurological Exam Neurological exam: Alert, CN II-XII Intact, Oriented x3 Additional comments: Oriented to person, place, time; arc air operator intact; Full ROM and strength of UE (b/l) and left LE; decreased ROM of right LE due to pain in left hip. Finger to nose exam normal. - Psychiatric Exam Psychiatric exam: Flat Affect - Skin Skin Exam: Dry, Warm Objective - Vital Signs/Intake and Output Vital Signs (last 24 hours): Temp Pulse Resp BP Pulse Ox 97.3 F L 96 H 16 192/89 H 96 05/25/17 15:10 05/25/17 22:02 05/25/17 22:02 05/25/17 22:02 05/25/17 15:10 Intake and Output: 05/25/17 05/26/17 18:59 06:59 Intake Total 550 Output Total 500 Balance 50 - Medications Medications: Current Medications Amlodipine Besylate (Norvasc) 5 mg PO BID [facility] Last Admin: 05/25/17 18:36 Dose: 5 mg Aspirin (Ecotrin) 81 mg PO DAILY [facility] Last Admin: 05/25/17 11:00 Dose: 81 mg Enoxaparin Sodium (Lovenox) 40 mg SC Q12H [facility] Last Admin: 05/25/17 11:18 Dose: 40 mg Sodium Chloride (Sodium Chloride 0.9%) 1,000 mls @ 75 mls/hr IV .[id number] [facility] Last Admin: 05/25/17 11:19 Dose: Not Given Lisinopril (Zestril) 10 mg PO DAILY [facility] Last Admin: 05/25/17 11:00 Dose: 10 mg Morphine Sulfate (Morphine) 1 mg IVP Q4 PRN PRN Reason: Pain, moderate (4-7) Last Admin: 05/25/17 18:36 Dose: 1 mg Pantoprazole Sodium (Protonix Ec Tab) 40 mg PO DAILY [facility] Last Admin: 05/25/17 11:00 Dose: 40 mg Rosuvastatin Calcium (Crestor) 20 mg PO HS [facility] Last Admin: 05/25/17 21:56 Dose: 20 mg - Labs Labs: 05/25/17 06:59 05/25/17 06:59 Assessment and Plan - Assessment and Plan (Free Text) Assessment: Stress test: Negative However due to positive Troponin, Non sustained VT runs and abnormal EF would consider cardiac cath Possible cardiac cath Sunday
--- NOTE | 2017-05-25 22:21 | CARD ---
APPROVED REPORT EKG Measurement Heart [id number] <Conclusion> Sinus tachycardia Septal infarct, age undetermined ST & T wave abnormality, consider lateral ischemia Abnormal ECG
--- NOTE | 2017-05-25 22:40 | CARD ---
APPROVED REPORT EKG Measurement Heart [id number] <Conclusion> Sinus tachycardia with paroxysmal short bursts of Afib Left ventricular hypertrophy with repolarization abnormality Can't rule anterolateral wall ischemia Cannot rule out Septal infarct, age undetermined Abnormal ECG
[2017-05-26] MEDS: Sodium Chloride 0.9% 1,000 ML IV SCH ×4 (00:07→21:28)
--- NOTE | 2017-05-26 08:00 | CP.PCM.PN ---
Subjective - Date & Time of Evaluation Date of Evaluation: 05/26/17 Time of Evaluation: 07:59 - Subjective Subjective: PGY-[address] Guzman's Service: Patient was seen and examined at bedside. Nursing reports BP markely elevated and order given for Hydralazine PRN. Pt found in no acute distress. She states her hip pain is controlled "as long as she does not move around too much." Patient denies fever, chills, vision changes, chest pain, dyspnea, abdominal pain, nausea, vomiting, fevers, headaches, leg pain/swelling. Objective - Vital Signs/Intake and Output Vital Signs (last 24 hours): Temp Pulse Resp BP Pulse Ox 98.3 F 86 18 198/92 H 97 05/26/17 07:34 05/26/17 07:34 05/26/17 07:34 05/26/17 07:34 05/26/17 07:34 Intake and Output: 05/26/17 05/26/17 06:59 18:59 Intake Total 600 Output Total 750 Balance -150 - Medications Medications: Current Medications Amlodipine Besylate (Norvasc) 5 mg PO BID [facility] Last Admin: 05/25/17 18:36 Dose: 5 mg Aspirin (Ecotrin) 81 mg PO DAILY [facility] Last Admin: 05/25/17 11:00 Dose: 81 mg Enoxaparin Sodium (Lovenox) 40 mg SC Q12H [facility] Last Admin: 05/25/17 22:28 Dose: 40 mg Sodium Chloride (Sodium Chloride 0.9%) 1,000 mls @ 75 mls/hr IV .[id number] [facility] Last Admin: 05/26/17 00:07 Dose: Not Given Lisinopril (Zestril) 10 mg PO DAILY [facility] Last Admin: 05/25/17 11:00 Dose: 10 mg Morphine Sulfate (Morphine) 1 mg IVP Q4 PRN PRN Reason: Pain, moderate (4-7) Last Admin: 05/26/17 02:44 Dose: 1 mg Pantoprazole Sodium (Protonix Ec Tab) 40 mg PO DAILY [facility] Last Admin: 05/25/17 11:00 Dose: 40 mg Rosuvastatin Calcium (Crestor) 20 mg PO HS [facility] Last Admin: 05/25/17 21:56 Dose: 20 mg - Labs Labs: 05/25/17 06:59 05/25/17 06:59 - Additional Findings Additional findings: - Constitutional Appears: No Acute Distress, Chronically Ill - Head Exam Head Exam: ATRAUMATIC (no tenderness, skin lesions, ecchymosis noted), NORMAL INSPECTION - Eye Exam Eye Exam: EOMI (right eye). absent: Normal appearance (glaucoma b/l; blind in right eye) - ENT Exam ENT Exam: Mucous Membranes Dry Additional comments: poor dentition; hard of hearing b/l - Respiratory Exam Respiratory Exam: Clear to Auscultation Bilateral, NORMAL BREATHING PATTERN. absent: Rales, Rhonchi, Wheezes, Respiratory Distress - Cardiovascular Exam Cardiovascular Exam: Tachycardia, Irregular Rhythm, +S1, +S2 - GI/Abdominal Exam GI & Abdominal Exam: Normal Bowel Sounds, Soft. absent: Distended, Firm, Guarding, Tenderness - Extremities Exam Extremities exam: Positive for: pedal pulses present. Negative for: pedal edema , tenderness Additional comments: Bilateral LE: no tenderness, ecchymosis, erythema, abrasions, contusions and skin lesions noted. Full ROM of left LE; pain in left hip when actively and passively raising right LE; pulses present b/l. 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 Finger to nose exam normal. - Psychiatric Exam Psychiatric exam: Flat Affect - Skin Skin Exam: Dry, Warm Assessment and Plan - Assessment and Plan (Free Text) Plan: (1) NSTEMI (non-ST elevated myocardial infarction) Assessment and Plan: Troponin 0.444-->0.427-->0.3980 EKG: sinus tachycardia @101bpm; LVH In the ED, ASA 325mg PO given Cardiology consulted- Dr. Mejias, help appreciated Continue to monitor on telemetry TSH/Free T4: 2.69/8.66 Lipid panel: TG 162, Chol 151, LDL 49, HDL 44 A1c: 5.3 Ddimer: 1965 VQ scan: low probability of PE Echocardiogram: EF 40%, Mild global hypokinesis, LVH Patient scheduled for cardiac cath on 05/28/[address] Mejias Crestor 20mg PO HS Amlodipine 5mg PO BID ASA 81mg PO daily (2) Fall Assessment and Plan: Orthopedic surgery consulted, Dr. Wei, help appreciated * Per ortho, patient has a Nondisplaced left sacral ala fracture. Possible right sacral ala fracture. Suspect fracture, nondisplaced, involving right- sided pubic symphysis. * sacral and ramus fx are non operative, conservative mgmt with pain medication , VTE proph, and progressive mobilization and ambulation training Head CT: No acute intracranial hemorrhage. Moderate chronic white matter ischemic changes as above. 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 Followup studies recommended if acute infarct suspected clinically; Mild moderate generalized volume loss. There is oblong appearance of the right globe; recommend ophthalmologic - fundoscopic examination two rule out glaucoma. Lumbar spine xray: No acute fractures. Minor multilevel degenerative spondylosis. Hip xray: No evidence of acute displaced fracture nor dislocation. Lower extremity CT: No evidence of acute displaced fracture nor dislocation. Brain MRI: no acute intracranial abnormality; no evidence for acute infarction; moderate chronic microangiopathic changes and mild age-related global parenchymal volume loss. (3) Hypertension Assessment and Plan: Home medications: amlodipine 5mg PO BID, clonidine 0.1mg PO HS Continue amlodipine 5mg PO BID Lisinopril 10mg PO daily (active 05/24/17) Continue to monitor (4) Leukocytosis Assessment and Plan: Leukocytosis w/bandemia at admission (WBC 13.5, bands 3) Afebrile UA: 3+ protein Urine cx: f/u results Blood cx: negative (5) Elevated transaminase level Assessment and Plan: Trending down At admission: AST/ALT: 673/1271 Hepatitis panel: negative HIV1/2: negative Acetaminophen level: <10 Abdominal US: fatter liver infiltrate; 1/5cm simple cyst in right lobe of liver ; 1cm simple cyst in lower pole of right kidney (6) Prophylactic measure Assessment and Plan: DVT: SCDs, Lovenox 40mg SC daily GI: Protonix 40mg PO daily Heart healthy diet PT/OT NS@75mls/hr Disposition: Patient scheduled for cardiac cath on 05/28/[address] Mejias
[2017-05-26 08:12] LABS: BASO % 0.5 % (0.0-2.0); EOS # 0.3 K/uL (0.0-0.7); EOS % 4.8 % (0.0-4.0); HEMOGLOBIN 13.3 g/dL (11.0-16.0); LYMPH # 0.8 K/uL (1.0-4.3); LYMPH % 12.5 % (20.0-40.0); MEAN CORPUSCULAR HEMOGLOBIN 29.9 pg (27.0-31.0); MEAN CORPUSCULAR HGB CONC 34.4 g/dL (33.0-37.0); MEAN PLATELET VOLUME 7.1 fL (7.2-11.7); MONO # 0.5 K/uL (0.0-0.8); MONO % 8.4 % (0.0-10.0); NEUT # 4.7 K/uL (1.8-7.0); NEUT % 73.8 % (50.0-75.0); NRBC % 0.1 % (0.0-2.0); RBC 4.43 Mil/uL (3.80-5.20); RED CELL DISTRIBUTION WIDTH 14.6 % (11.5-14.5); WHITE BLOOD COUNT 6.4 K/uL (4.8-10.8)
[2017-05-26 08:25] LABS: ALB/GLOB RATIO 0.9 (1.0-2.1); ALBUMIN 3.2 g/dL (3.5-5.0); CALCIUM 7.9 mg/dl (8.6-10.4)
[2017-05-26] MEDS: Enoxaparin 40 mg Syringe SC SCH ×2 (10:20→23:49)
[2017-05-26] MEDS: Pantoprazole 40 mg EC Tab PO SCH (10:20)
--- NOTE | 2017-05-26 22:12 | CP.PCM.PN ---
Subjective - Date & Time of Evaluation Date of Evaluation: 05/26/17 Time of Evaluation: 17:10 - Subjective Subjective: Patient seen and evaluated Denies chest pain and dyspnea Review of Systems - Constitutional Constitutional: Weakness. absent: Chills, Excessive Sweating, Fever, Headache - EENT Eyes: Other (no new changes in vision; glaucoma b/l; left eye vision intact) Ears: absent: Dizziness - Cardiovascular Cardiovascular: Palpitations, Rapid Heart Rate. absent: Chest Pain, Dyspnea, Edema, Leg Edema - Respiratory Respiratory: absent: Dyspnea - Gastrointestinal Gastrointestinal: Nausea. absent: Abdominal Pain, Constipation, Diarrhea, Hematemesis, Hematochezia, Vomiting - Genitourinary Genitourinary: absent: Dysuria, Hematuria, Urinary Frequency - Integumentary Integumentary: absent: Bleeding Lesions, Non-Healing Lesions, Sores, Unusual Bruising, Wounds - Neurological Neurological: Weakness. absent: Dizziness - Endocrine Endocrine: Palpitations - Hematologic/Lymphatic Hematologic: absent: Easy Bleeding, Easy Bruising Physical Exam - Constitutional Appears: No Acute Distress, Chronically Ill - Head Exam Head Exam: ATRAUMATIC (no tenderness, skin lesions, ecchymosis noted), NORMAL INSPECTION - Eye Exam Eye Exam: EOMI (right eye). absent: Normal appearance (glaucoma b/l; blind in right eye) - ENT Exam ENT Exam: Mucous Membranes Dry Additional comments: poor dentition - Respiratory Exam Respiratory Exam: Clear to Auscultation Bilateral, NORMAL BREATHING PATTERN. absent: Rales, Rhonchi, Wheezes, Respiratory Distress - Cardiovascular Exam Cardiovascular Exam: Tachycardia, Irregular Rhythm, +S1, +S2 - GI/Abdominal Exam GI & Abdominal Exam: Normal Bowel Sounds, Soft. absent: Distended, Firm, Guarding, Tenderness - Extremities Exam Extremities exam: Positive for: pedal pulses present. Negative for: pedal edema , tenderness Additional comments: Bilateral LE: no tenderness, ecchymosis, erythema, abrasions, contusions and skin lesions noted. Full ROM of left LE; pain in left hip when actively and passively raising right LE; pulses present b/l. 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 Finger to nose exam normal. - Psychiatric Exam Psychiatric exam: Flat Affect - Skin Skin Exam: Dry, Warm Objective - Vital Signs/Intake and Output Vital Signs (last 24 hours): Temp Pulse Resp BP Pulse Ox 98.5 F 86 20 170/76 H 96 05/26/17 15:26 05/26/17 16:00 05/26/17 15:26 05/26/17 15:26 05/26/17 15:26 Intake and Output: 05/26/17 05/27/17 18:59 06:59 Intake Total 900 Output Total 700 Balance 200 - Medications Medications: Current Medications Amlodipine Besylate (Norvasc) 5 mg PO BID [facility] Last Admin: 05/26/17 17:16 Dose: 5 mg Aspirin (Ecotrin) 81 mg PO DAILY [facility] Last Admin: 05/26/17 10:20 Dose: 81 mg Carvedilol (Coreg) 3.125 mg PO BID [facility] Last Admin: 05/26/17 17:03 Dose: 3.125 mg Enoxaparin Sodium (Lovenox) 40 mg SC Q12H [facility] Last Admin: 05/26/17 10:20 Dose: 40 mg Hydralazine HCl (Apresoline) 10 mg IVP Q6H PRN PRN Reason: Systolic Blood Pressure >160 Last Admin: 05/26/17 08:37 Dose: 10 mg Sodium Chloride (Sodium Chloride 0.9%) 1,000 mls @ 75 mls/hr IV .[id number] [facility] Last Admin: 05/26/17 21:28 Dose: 75 mls/hr Lisinopril (Zestril) 10 mg PO DAILY [facility] Last Admin: 05/26/17 10:20 Dose: 10 mg Morphine Sulfate (Morphine) 1 mg IVP Q4 PRN PRN Reason: Pain, moderate (4-7) Last Admin: 05/26/17 17:07 Dose: 1 mg Pantoprazole Sodium (Protonix Ec Tab) 40 mg PO DAILY [facility] Last Admin: 05/26/17 10:20 Dose: 40 mg Rosuvastatin Calcium (Crestor) 20 mg PO HS [facility] Last Admin: 05/26/17 21:26 Dose: 20 mg - Labs Labs: 05/26/17 08:03 05/26/17 08:03 Assessment and Plan - Assessment and Plan (Free Text) Assessment: Stress test: Negative However due to positive Troponin, Non sustained VT runs and abnormal EF would consider cardiac cath Cardiac cath Sunday NPO after breakfast Sunday D/W Patient's Daughter
[2017-05-27] MEDS: Sodium Chloride 0.9% 1,000 ML IV SCH (02:10)
[2017-05-27 07:36] LABS: BASO % 0.4 % (0.0-2.0); EOS # 0.6 K/uL (0.0-0.7); EOS % 6.7 % (0.0-4.0); HEMOGLOBIN 12.5 g/dL (11.0-16.0); LYMPH # 0.5 K/uL (1.0-4.3); LYMPH % 5.1 % (20.0-40.0); MEAN CELL VOLUME 86.5 fL (81.0-99.0); MEAN CORPUSCULAR HEMOGLOBIN 29.9 pg (27.0-31.0); MEAN CORPUSCULAR HGB CONC 34.5 g/dL (33.0-37.0); MEAN PLATELET VOLUME 7.4 fL (7.2-11.7); MONO # 0.4 K/uL (0.0-0.8); MONO % 4.5 % (0.0-10.0); NEUT # 7.5 K/uL (1.8-7.0); NEUT % 83.3 % (50.0-75.0); NRBC % 0.1 % (0.0-2.0); PLATELET COUNT 321 K/uL (130-400); RBC 4.18 Mil/uL (3.80-5.20); RED CELL DISTRIBUTION WIDTH 14.2 % (11.5-14.5)
[2017-05-27 08:20] LABS: ALB/GLOB RATIO 0.8 (1.0-2.1); ALBUMIN 2.6 g/dL (3.5-5.0); CALCIUM 7.6 mg/dl (8.6-10.4)
--- NOTE | 2017-05-27 08:37 | CP.PCM.PN ---
Subjective - Date & Time of Evaluation Date of Evaluation: 05/27/17 Time of Evaluation: 08:35 - Subjective Subjective: PGY-[address] Guzman's Service: Patient was seen and examined at bedside. Nursing reports BP remains markedly elevated and medication were addressed. Pt denies pain when she lays still, but admits pain with movement. Patient denies fever, chills, vision changes, chest pain, dyspnea, abdominal pain, nausea, vomiting, fevers, headaches, leg pain/ swelling. Pt NPO for cardiac cath in AM. Objective - Vital Signs/Intake and Output Vital Signs (last 24 hours): Temp Pulse Resp BP Pulse Ox 98.4 F 90 20 191/84 H 95 05/27/17 07:55 05/27/17 07:55 05/27/17 07:55 05/27/17 07:55 05/27/17 07:55 Intake and Output: 05/27/17 05/27/17 06:59 18:59 Intake Total 1400 Output Total 800 Balance 600 - Medications Medications: Current Medications Amlodipine Besylate (Norvasc) 5 mg PO BID [facility] Last Admin: 05/26/17 17:16 Dose: 5 mg Aspirin (Ecotrin) 81 mg PO DAILY [facility] Last Admin: 05/26/17 10:20 Dose: 81 mg Carvedilol (Coreg) 3.125 mg PO BID [facility] Last Admin: 05/26/17 17:03 Dose: 3.125 mg Enoxaparin Sodium (Lovenox) 40 mg SC Q12H [facility] Last Admin: 05/26/17 23:49 Dose: 40 mg Hydralazine HCl (Apresoline) 10 mg IVP Q6H PRN PRN Reason: Systolic Blood Pressure >160 Last Admin: 05/26/17 08:37 Dose: 10 mg Lisinopril (Zestril) 10 mg PO DAILY [facility] Last Admin: 05/26/17 10:20 Dose: 10 mg Morphine Sulfate (Morphine) 1 mg IVP Q4 PRN PRN Reason: Pain, moderate (4-7) Last Admin: 05/26/17 17:07 Dose: 1 mg Pantoprazole Sodium (Protonix Ec Tab) 40 mg PO DAILY [facility] Last Admin: 05/26/17 10:20 Dose: 40 mg Rosuvastatin Calcium (Crestor) 20 mg PO HS [facility] Last Admin: 05/26/17 21:26 Dose: 20 mg - Labs Labs: 05/27/17 07:22 05/27/17 07:22 - Additional Findings Additional findings: - Constitutional Appears: No Acute Distress, Chronically Ill - Head Exam Head Exam: ATRAUMATIC (no tenderness, skin lesions, ecchymosis noted), NORMAL INSPECTION - Eye Exam Eye Exam: EOMI (right eye). absent: Normal appearance (glaucoma b/l; blind in right eye) - ENT Exam ENT Exam: Mucous Membranes Dry Additional comments: poor dentition; hard of hearing b/l - Respiratory Exam Respiratory Exam: Clear to Auscultation Bilateral, NORMAL BREATHING PATTERN. absent: Rales, Rhonchi, Wheezes, Respiratory Distress - Cardiovascular Exam Cardiovascular Exam: Tachycardia, Irregular Rhythm, +S1, +S2 - GI/Abdominal Exam GI & Abdominal Exam: Normal Bowel Sounds, Soft. absent: Distended, Firm, Guarding, Tenderness - Extremities Exam Extremities exam: Positive for: pedal pulses present. Negative for: pedal edema , tenderness Additional comments: Bilateral LE: no tenderness, ecchymosis, erythema, abrasions, contusions and skin lesions noted. Full ROM of left LE; pain in left hip when actively and passively raising right LE; pulses present b/l. 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 Mejias Troponin 0.444-->0.427-->0.3980 EKG: sinus tachycardia @101bpm; LVH In the ED, ASA 325mg PO given Cardiology consulted- Dr. Mejias, help appreciated Continue to monitor on telemetry TSH/Free T4: 2.69/8.66 Lipid panel: TG 162, Chol 151, LDL 49, HDL 44 A1c: 5.3 Ddimer: 1965 VQ scan: low probability of PE Echocardiogram: EF 40%, Mild global hypokinesis, LVH Coreg 3.25mg PO BID Crestor 20mg PO HS Amlodipine 5mg PO BID ASA 81mg PO daily Fall Assessment and Plan: Orthopedic surgery consulted, Dr. Wei, help appreciated * Per ortho, patient has a Nondisplaced left sacral ala fracture. Possible right sacral ala fracture. Suspect fracture, nondisplaced, involving right- sided pubic symphysis. * sacral and ramus fx are non operative, conservative mgmt with pain medication , VTE proph, and progressive mobilization and ambulation training Head CT: No acute intracranial hemorrhage. Moderate chronic white matter ischemic changes as above. 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 Followup studies recommended if acute infarct suspected clinically; Mild moderate generalized volume loss. There is oblong appearance of the right globe; recommend ophthalmologic - fundoscopic examination two rule out glaucoma. Lumbar spine xray: No acute fractures. Minor multilevel degenerative spondylosis. Hip xray: No evidence of acute displaced fracture nor dislocation. Lower extremity CT: No evidence of acute displaced fracture nor dislocation. Brain MRI: no acute intracranial abnormality; no evidence for acute infarction; moderate chronic microangiopathic changes and mild age-related global parenchymal volume loss. Nondisplaced left sacral ala fracture/Possible right sacral ala fracture. Orthopedic surgery consulted, Dr. Wei, help appreciated -Per Dr. Wei, consider spine consultation for sacral fracture. Hypertension Poorly controlled Hydralazine IV 40mg Q6H PRN Home medications: amlodipine 5mg PO BID, clonidine 0.1mg PO HS Continue amlodipine 5mg PO BID Increased Lisinopril to 20mg PO daily (start 05/27) Continue to monitor Leukocytosis, resolved Assessment and Plan: Leukocytosis w/bandemia at admission (WBC 13.5, bands 3) Afebrile UA: 3+ protein Urine cx: f/u results Blood cx: negative Elevated transaminase level Assessment and Plan: Trending down 05/27: (42/159) At admission: AST/ALT: 673/1271 Hepatitis panel: negative HIV1/2: negative Acetaminophen level: <10 Abdominal US: fatter liver infiltrate; 1/5cm simple cyst in right lobe of liver ; 1cm simple cyst in lower pole of right kidney Prophylactic measure Assessment and Plan: DVT: SCDs, Lovenox 40mg SC daily GI: Protonix 40mg PO daily Heart healthy diet - NPO at MD on 05/28 for cardiac cath PT/OT NS@75mls/hr Disposition: Patient scheduled for cardiac cath on 05/28/[address] Mejias
[2017-05-27] MEDS: Pantoprazole 40 mg EC Tab PO SCH (09:53)
[2017-05-27] MEDS: Enoxaparin 40 mg Syringe SC SCH ×2 (10:15→23:03)
[2017-05-27 10:18] LABS: EOSINOPHIL 3 % (0-4); LYMPHOCYTE 5 % (20-40); MONOCYTE 7 % (0-10); NEUTROPHIL 85 % (50-75); NUCLEATED RED BLOOD CELL 1 % (0-0); PLATELET ESTIMATE NORMAL (NORMAL); TOTAL CELLS COUNTED 100
--- NOTE | 2017-05-27 20:33 | CP.PCM.PN ---
Subjective - Date & Time of Evaluation Date of Evaluation: 05/27/17 Time of Evaluation: 11:30 - Subjective Subjective: Patient with hx of Non STEMI Abnormal LV function by ECHO For cath at 2pm tomorrow NPO after breakfast Objective - Vital Signs/Intake and Output Vital Signs (last 24 hours): Temp Pulse Resp BP Pulse Ox 98.5 F 77 18 140/77 96 05/27/17 15:25 05/27/17 18:00 05/27/17 15:25 05/27/17 15:25 05/27/17 15:25 Intake and Output: 05/27/17 05/28/17 18:59 06:59 Intake Total 280 Output Total 450 Balance -170 - Medications Medications: Current Medications Amlodipine Besylate (Norvasc) 5 mg PO BID [facility] Last Admin: 05/27/17 19:28 Dose: 5 mg Aspirin (Ecotrin) 81 mg PO DAILY [facility] Last Admin: 05/27/17 09:53 Dose: 81 mg Carvedilol (Coreg) 6.25 mg PO BID [facility] Last Admin: 05/27/17 17:49 Dose: 6.25 mg Enoxaparin Sodium (Lovenox) 40 mg SC Q12H [facility] Last Admin: 05/27/17 10:15 Dose: 40 mg Hydralazine HCl (Apresoline) 10 mg IVP Q6H PRN PRN Reason: Systolic Blood Pressure >160 Last Admin: 05/26/17 08:37 Dose: 10 mg Lisinopril (Zestril) 20 mg PO DAILY [facility] Last Admin: 05/27/17 09:57 Dose: 20 mg Morphine Sulfate (Morphine) 1 mg IVP Q4 PRN PRN Reason: Pain, moderate (4-7) Last Admin: 05/26/17 17:07 Dose: 1 mg Pantoprazole Sodium (Protonix Ec Tab) 40 mg PO DAILY [facility] Last Admin: 05/27/17 09:53 Dose: 40 mg Rosuvastatin Calcium (Crestor) 20 mg PO HS [facility] Last Admin: 05/26/17 21:26 Dose: 20 mg - Labs Labs: 05/27/17 07:22 05/27/17 07:22
[2017-05-28 06:26] LABS: INR 1.1; PROTHROMBIN TIME 12.5 SECONDS (9.7-12.2)
[2017-05-28 06:29] LABS: BASO # 0.1 K/uL (0.0-0.2); BASO % 0.7 % (0.0-2.0); EOS # 0.9 K/uL (0.0-0.7); EOS % 7.8 % (0.0-4.0); HEMOGLOBIN 12.3 g/dL (11.0-16.0); LYMPH # 0.8 K/uL (1.0-4.3); LYMPH % 6.6 % (20.0-40.0); MEAN CELL VOLUME 86.6 fL (81.0-99.0); MEAN CORPUSCULAR HEMOGLOBIN 29.2 pg (27.0-31.0); MEAN CORPUSCULAR HGB CONC 33.7 g/dL (33.0-37.0); MEAN PLATELET VOLUME 7.3 fL (7.2-11.7); MONO # 0.6 K/uL (0.0-0.8); MONO % 4.6 % (0.0-10.0); NEUT # 9.7 K/uL (1.8-7.0); NEUT % 80.3 % (50.0-75.0); NRBC % 0.1 % (0.0-2.0); PLATELET COUNT 393 K/uL (130-400); RBC 4.21 Mil/uL (3.80-5.20); WHITE BLOOD COUNT 12.1 K/uL (4.8-10.8)
[2017-05-28 06:49] LABS: ALB/GLOB RATIO 0.8 (1.0-2.1); ALBUMIN 2.8 g/dL (3.5-5.0); CALCIUM 8.2 mg/dl (8.6-10.4)
--- NOTE | 2017-05-28 08:15 | CP.PCM.PN ---
Subjective - Date & Time of Evaluation Date of Evaluation: 05/28/17 Time of Evaluation: 08:12 - Subjective Subjective: Patient states she has pain in her hip and her back when she moves. No new complaints. Denies numbness/tingling. Review of Systems - Review of Systems All systems: reviewed and no additional remarkable complaints except Review of Systems: no fever/chills - Cardiovascular Cardiovascular: UNREMARKABLE - Respiratory Respiratory: UNREMARKABLE - Gastrointestinal Gastrointestinal: UNREMARKABLE - Musculoskeletal Musculoskeletal: As Par HPI - Integumentary Integumentary: UNREMARKABLE - Neurological Neurological: UNREMARKABLE - Hematologic/Lymphatic Hematologic: UNREMARKABLE Objective - Vital Signs/Intake and Output Vital Signs (last 24 hours): Temp Pulse Resp BP Pulse Ox 98 F 75 18 159/75 H 95 05/27/17 23:44 05/28/17 01:29 05/27/17 23:44 05/27/17 23:44 05/27/17 23:44 Intake and Output: 05/28/17 05/28/17 06:59 18:59 Output Total 625 Balance -625 - Medications Medications: Current Medications Amlodipine Besylate (Norvasc) 5 mg PO BID [facility] Last Admin: 05/27/17 19:28 Dose: 5 mg Aspirin (Ecotrin) 81 mg PO DAILY [facility] Last Admin: 05/27/17 09:53 Dose: 81 mg Carvedilol (Coreg) 6.25 mg PO BID [facility] Last Admin: 05/27/17 17:49 Dose: 6.25 mg Enoxaparin Sodium (Lovenox) 40 mg SC Q12H [facility] Last Admin: 05/27/17 23:03 Dose: 40 mg Hydralazine HCl (Apresoline) 10 mg IVP Q6H PRN PRN Reason: Systolic Blood Pressure >160 Last Admin: 05/26/17 08:37 Dose: 10 mg Lisinopril (Zestril) 20 mg PO DAILY [facility] Last Admin: 05/27/17 09:57 Dose: 20 mg Morphine Sulfate (Morphine) 1 mg IVP Q4 PRN PRN Reason: Pain, moderate (4-7) Last Admin: 05/27/17 23:03 Dose: 1 mg Pantoprazole Sodium (Protonix Ec Tab) 40 mg PO DAILY [facility] Last Admin: 05/27/17 09:53 Dose: 40 mg Rosuvastatin Calcium (Crestor) 20 mg PO HS [facility] Last Admin: 05/27/17 21:35 Dose: 20 mg - Labs Labs: 05/28/17 06:17 05/28/17 06:17 PT 12.5 SECONDS (9.7-12.2) H 05/28/17 06:17 INR 1.1 05/28/17 06:17 - Constitutional Appears: Well, No Acute Distress - Head Exam Head Exam: ATRAUMATIC - Neck Exam Neck Exam: Full ROM, Normal Inspection - Respiratory Exam Respiratory Exam: NORMAL BREATHING PATTERN - Cardiovascular Exam Additional comments: +DP/PT pulses BLE - Extremities Exam Additional comments: calves soft NT neg homans sensation intact BLE - Back Exam Additional comments: sacral tenderness - Neurological Exam Neurological Exam: Alert, Awake Neuro motor strength exam: Left Lower Extremity: 5 (great toe ext/DF/PF/knee flex/ext), Right Lower Extremity: 5 - Psychiatric Exam Additional comments: calm - Skin Skin Exam: Dry, Intact, Normal Color, Warm Assessment and Plan (1) Fracture of sacrum Assessment & Plan: d/w Dr. Wei, recommends neurosurgery consultation due to sacral fracture WBAT PT/OT encourage OOB to chair VTE proph SCDs no orthopedic intervention indicated for fractures d/w Dr. Wei, agrees with above Status: Acute (2) Fracture of right superior pubic ramus Status: Acute (3) Fall Status: Acute
[2017-05-28 08:37] LABS: EOSINOPHIL 7 % (0-4); LYMPHOCYTE 8 % (20-40); MONOCYTE 3 % (0-10); NEUTROPHIL 82 % (50-75); PLATELET ESTIMATE NORMAL (NORMAL); TOTAL CELLS COUNTED 100
--- NOTE | 2017-05-28 09:32 | CP.PCM.PN ---
Subjective - Date & Time of Evaluation Date of Evaluation: 05/28/17 Time of Evaluation: 09:22 - Subjective Subjective: PGY-[address] Guzman. No acute events noted overnight. Patient was NPO for cath today. Patient was seen lying comfortably, however she states she has pain on any movement. She denies loss of appetite, chest pain, shortness of breath, fevers. Objective - Vital Signs/Intake and Output Vital Signs (last 24 hours): Temp Pulse Resp BP Pulse Ox 98.0 F 68 18 100/63 96 05/28/17 07:25 05/28/17 07:25 05/28/17 07:25 05/28/17 07:25 05/28/17 07:25 Intake and Output: 05/28/17 05/28/17 06:59 18:59 Output Total 625 Balance -625 - Medications Medications: Current Medications Amlodipine Besylate (Norvasc) 5 mg PO BID [facility] Last Admin: 05/27/17 19:28 Dose: 5 mg Aspirin (Ecotrin) 81 mg PO DAILY [facility] Last Admin: 05/28/17 09:08 Dose: Not Given Carvedilol (Coreg) 6.25 mg PO BID [facility] Last Admin: 05/27/17 17:49 Dose: 6.25 mg Enoxaparin Sodium (Lovenox) 40 mg SC Q12H [facility] Last Admin: 05/27/17 23:03 Dose: 40 mg Hydralazine HCl (Apresoline) 10 mg IVP Q6H PRN PRN Reason: Systolic Blood Pressure >160 Last Admin: 05/26/17 08:37 Dose: 10 mg Lisinopril (Zestril) 20 mg PO DAILY [facility] Last Admin: 05/27/17 09:57 Dose: 20 mg Morphine Sulfate (Morphine) 1 mg IVP Q4 PRN PRN Reason: Pain, moderate (4-7) Last Admin: 05/27/17 23:03 Dose: 1 mg Pantoprazole Sodium (Protonix Ec Tab) 40 mg PO DAILY [facility] Last Admin: 05/27/17 09:53 Dose: 40 mg Rosuvastatin Calcium (Crestor) 20 mg PO HS [facility] Last Admin: 05/27/17 21:35 Dose: 20 mg - Labs Labs: 05/28/17 06:17 05/28/17 06:17 PT 12.5 SECONDS (9.7-12.2) H 05/28/17 06:17 INR 1.1 05/28/17 06:17 - Additional Findings Additional findings: - Constitutional Appears: No Acute Distress, Chronically Ill - Head Exam Head Exam: ATRAUMATIC (no tenderness, skin lesions, ecchymosis noted), NORMAL INSPECTION - Eye Exam Eye Exam: EOMI (right eye). absent: Normal appearance (glaucoma b/l; blind in right eye) - ENT Exam ENT Exam: Mucous Membranes Dry Additional comments: poor dentition; hard of hearing b/l - Respiratory Exam Respiratory Exam: Clear to Auscultation Bilateral, NORMAL BREATHING PATTERN. absent: Rales, Rhonchi, Wheezes, Respiratory Distress - Cardiovascular Exam Cardiovascular Exam: Tachycardia, Irregular Rhythm, +S1, +S2 - GI/Abdominal Exam GI & Abdominal Exam: Normal Bowel Sounds, Soft. absent: Distended, Firm, Guarding, Tenderness - Extremities Exam Extremities exam: Positive for: pedal pulses present. Negative for: pedal edema , tenderness Additional comments: Bilateral LE: no tenderness, ecchymosis, erythema, abrasions, contusions and skin lesions noted. Full ROM of left LE; pain in left hip when actively and passively raising right LE; pulses present b/l. 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 Mejias Cardiology consulted- Dr. Mejias, help appreciated Troponin 0.444-->0.427-->0.3980 EKG: sinus tachycardia @101bpm; LVH In the ED, ASA 325mg PO given Continue to monitor on telemetry TSH/Free T4: 2.69/8.66 Lipid panel: TG 162, Chol 151, LDL 49, HDL 44 Echocardiogram: EF 40%, Mild global hypokinesis, LVH Stress test 05/25/17 NEGATIVE * Due to Non sustained VT runs and abnormal EF patient to go for Cardiac Cath Coreg 6.25mg PO BID (increased from 3.25 PO BID due to HTN) Crestor 20mg PO HS Amlodipine 5mg PO BID ASA 81mg PO daily Fall Fracture of sacrum Assessment and Plan: Orthopedic surgery consulted, Dr. Wei, help appreciated * Per ortho, patient has a Nondisplaced left sacral ala fracture. Possible right sacral ala fracture. Suspect fracture, nondisplaced, involving right- sided pubic symphysis. * sacral and ramus fx are non operative, conservative mgmt with pain medication , VTE proph, and progressive mobilization and ambulation training * Dr Wei recommends neurosurgery consultation due to sacral fracture Neurosurgical consult, Dr Griggs. Will follow recs. PT/OT eval and treat Encourage OOB to chair Weight bearing exercises as tolerated Pelvis CT: Nondisplaced left sacral ala fracture. Possible right sacral ala fracture. Suspect fracture, nondisplaced, involving right-sided pubic symphysis. Hip xray: No evidence of acute displaced fracture nor dislocation. Lower extremity CT: No evidence of acute displaced fracture nor dislocation. Lumbar spine xray: No acute fractures. Minor multilevel degenerative spondylosis. Head CT: No acute intracranial hemorrhage. Moderate chronic white matter ischemic changes as above. 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 Followup studies recommended if acute infarct suspected clinically; Mild moderate generalized volume loss. There is oblong appearance of the right globe; recommend ophthalmologic - fundoscopic examination two rule out glaucoma. Brain MRI: no acute intracranial abnormality; no evidence for acute infarction; moderate chronic microangiopathic changes and mild age-related global parenchymal volume loss. Hypertension Poorly controlled Hydralazine IV 40mg Q6H PRN Home medications: amlodipine 5mg PO BID, clonidine 0.1mg PO HS Continue amlodipine 5mg PO BID Increased Lisinopril to 20mg PO daily (start 05/27) Continue to monitor Elevated D-Dimer Ddimer: 1964 VQ scan: low probability of PE Leukocytosis, resolved Assessment and Plan: Leukocytosis w/bandemia at admission (WBC 13.5, bands 3) Afebrile UA: 3+ protein Urine cx: NEGATIVE Blood cx: NEGATIVE Elevated transaminase level Assessment and Plan: Trending down 05/27: (42/159) At admission: AST/ALT: 673/1271 Hepatitis panel: negative HIV1/2: negative Acetaminophen level: <10 Abdominal US: fatter liver infiltrate; 1/5cm simple cyst in right lobe of liver ; 1cm simple cyst in lower pole of right kidney Prophylactic measure Assessment and Plan: DVT: SCDs, Lovenox 40mg SC daily GI: Protonix 40mg PO daily Heart healthy diet - NPO at [place] on 05/28 for cardiac cath PT/OT NS@75mls/hr Disposition: Patient scheduled for cardiac cath on 05/28/[address] Mejias
[2017-05-28] MEDS: Pantoprazole 40 mg EC Tab PO SCH (09:58)
[2017-05-28] MEDS ORDERED: Midazolam 2 MG/2 ML VIAL ONE (17:00)
[2017-05-28] MEDS ORDERED: Iodixanol 320 MG/ML 100 ML BOTTLE IV ONE (17:32)
[2017-05-28] MEDS ORDERED: Iohexol 350mg/ml 100 ML ONE (17:40)
--- NOTE | 2017-05-28 17:58 | CP.PCM.PN ---
Subjective - Date & Time of Evaluation Date of Evaluation: 05/28/17 Time of Evaluation: 17:57 - Subjective Subjective: Patient s/p cath Large Ramus 95% stenosis EF 50% Other arteries are patent PCI tomorrow at [place] if patient and daughter agreeable Objective - Vital Signs/Intake and Output Vital Signs (last 24 hours): Temp Pulse Resp BP Pulse Ox 97.5 F L 74 18 147/77 94 L 05/28/17 15:35 05/28/17 15:35 05/28/17 15:35 05/28/17 15:35 05/28/17 15:35 Intake and Output: 05/28/17 05/28/17 06:59 18:59 Intake Total 160 Output Total 625 200 Balance -625 -40 - Medications Medications: Current Medications Amlodipine Besylate (Norvasc) 5 mg PO BID [facility] Last Admin: 05/28/17 17:30 Dose: Not Given Aspirin (Ecotrin) 81 mg PO DAILY [facility] Last Admin: 05/28/17 09:08 Dose: Not Given Carvedilol (Coreg) 6.25 mg PO BID [facility] Last Admin: 05/28/17 17:30 Dose: Not Given Clopidogrel Bisulfate (Plavix) 75 mg PO DAILY [facility] Enoxaparin Sodium (Lovenox) 40 mg SC Q12H [facility] Last Admin: 05/27/17 23:03 Dose: 40 mg Famotidine (Pepcid) 20 mg PO DAILY [facility] Hydralazine HCl (Apresoline) 10 mg IVP Q6H PRN PRN Reason: Systolic Blood Pressure >160 Last Admin: 05/26/17 08:37 Dose: 10 mg Sodium Chloride (Sodium Chloride 0.9%) 1,000 mls @ 50 mls/hr IV .Q20H [facility] Lisinopril (Zestril) 20 mg PO DAILY [facility] Last Admin: 05/28/17 09:58 Dose: 20 mg Morphine Sulfate (Morphine) 1 mg IVP Q4 PRN PRN Reason: Pain, moderate (4-7) Last Admin: 05/27/17 23:03 Dose: 1 mg Rosuvastatin Calcium (Crestor) 20 mg PO HS [facility] Last Admin: 05/27/17 21:35 Dose: 20 mg - Labs Labs: 05/28/17 06:17 05/28/17 06:17 PT 12.5 SECONDS (9.7-12.2) H 05/28/17 06:17 INR 1.1 05/28/17 06:17
[2017-05-29] MEDS: Sodium Chloride 0.9% 1,000 ML IV SCH ×2 (02:03→18:44)
--- NOTE | 2017-05-29 04:55 | CARDCATH ---
PROCEDURE DATE: 05/28/2017 PROCEDURES: 1. Left heart catheterization. 2. Coronary angiogram. CLINICAL INDICATIONS: 1. Chest pain. 2. Non ST-elevation myocardial infarction. 3. Coronary artery disease. 4. Hyperlipidemia. REFERRING PHYSICIAN: Xiang Guzman MD PERFORMING PHYSICIAN: Froy Mejias MD PROCEDURE: After informed consent, the patient was prepped and draped in the usual sterile fashion. Lidocaine 2% was given in the right groin for local anesthesia. Using micropuncture technique, 6-Marshallese sheath was introduced into the right common femoral artery. A JL4 6-Marshallese diagnostic catheter was engaged into left main coronary artery. Contrast injected and left coronary angiogram was performed. The JR4 catheter crossed into left ventricle across the aortic valve. LV end-diastolic pressure measured. Contrast injected. LV angiogram was performed. The catheter was pulled back across the aortic valve. Gradient across the aortic valve was measured. Then the same catheter engaged into right coronary artery. Contrast injected and right coronary angiogram was performed. Postprocedure, radiological supervision and radiological interpretation of the coronary angiogram, left heart catheterization was done. The patient tolerated the procedure well. Postprocedure, the sheath was pulled manually with excellent hemostasis. FINDINGS: 1. Left main coronary artery is patent. 2. LAD and diagonal branches are patent. 3. Large ramus has mid 95% concentric stenosis. Distal ramus is patent. 4. Left circumflex coronary artery is patent. 5. Right coronary artery is dominant and patent. 6. LV ejection fraction is approximately 50%. Mild global hypokinesis. EDP is 30. No gradient across the aortic valve. IMPRESSION: 1. Single-vessel coronary artery disease. 2. Mildly decreased left ventricular systolic function. The patient will be transferred to [place] for coronary intervention in a.. The findings were discussed with the patient and patient's daughter Xochitl, who agreed for coronary intervention. Froy Mejias MD
[2017-05-29 08:18] LABS: BASO # 0.1 K/uL (0.0-0.2); BASO % 0.5 % (0.0-2.0); EOS # 0.6 K/uL (0.0-0.7); EOS % 5.5 % (0.0-4.0); HEMOGLOBIN 11.1 g/dL (11.0-16.0); LYMPH # 0.9 K/uL (1.0-4.3); LYMPH % 7.7 % (20.0-40.0); MEAN CELL VOLUME 86.3 fL (81.0-99.0); MEAN CORPUSCULAR HGB CONC 34.7 g/dL (33.0-37.0); MEAN PLATELET VOLUME 7.7 fL (7.2-11.7); MONO # 0.9 K/uL (0.0-0.8); MONO % 8.1 % (0.0-10.0); NEUT % 78.2 % (50.0-75.0); PLATELET COUNT 373 K/uL (130-400); RED CELL DISTRIBUTION WIDTH 14.4 % (11.5-14.5); WHITE BLOOD COUNT 11.5 K/uL (4.8-10.8)
[2017-05-29 08:53] LABS: ALB/GLOB RATIO 0.9 (1.0-2.1); ALBUMIN 2.6 g/dL (3.5-5.0); CALCIUM 8.1 mg/dl (8.6-10.4)
[2017-05-29 09:21] LABS: BASOPHIL 1 % (0-2); EOSINOPHIL 4 % (0-4); LYMPHOCYTE 6 % (20-40); MONOCYTE 10 % (0-10); NEUTROPHIL 79 % (50-75); PLATELET ESTIMATE NORMAL (NORMAL); TOTAL CELLS COUNTED 100
--- NOTE | 2017-05-29 11:54 | CP.PCM.PN ---
Subjective - Date & Time of Evaluation Date of Evaluation: 05/29/17 Time of Evaluation: 11:52 - Subjective Subjective: Patient s/p RCA intervention with Drug eluting Stent ASA 81, Statins and b blockers for life Plavix 75 daily for 1 year CKD Renal Consult: Dr. Jean Check BUN/Cr in am Hold lisinopril now IVF Bed rest till 2pm PT eval Objective - Vital Signs/Intake and Output Vital Signs (last 24 hours): Temp Pulse Resp BP Pulse Ox 98.1 F 81 20 165/88 H 97 05/29/17 07:00 05/29/17 07:40 05/29/17 07:00 05/29/17 07:00 05/29/17 07:00 Intake and Output: 05/29/17 05/29/17 06:59 18:59 Intake Total 900 Output Total 600 Balance 300 - Medications Medications: Current Medications Amlodipine Besylate (Norvasc) 5 mg PO BID [facility] Last Admin: 05/29/17 09:13 Dose: Not Given Aspirin (Ecotrin) 81 mg PO DAILY [facility] Last Admin: 05/29/17 09:12 Dose: Not Given Carvedilol (Coreg) 6.25 mg PO BID [facility] Last Admin: 05/29/17 09:12 Dose: Not Given Clopidogrel Bisulfate (Plavix) 75 mg PO DAILY [facility] Last Admin: 05/29/17 09:12 Dose: Not Given Famotidine (Pepcid) 20 mg PO DAILY [facility] Last Admin: 05/29/17 09:13 Dose: Not Given Heparin Sodium (Porcine) (Heparin) 5,000 units SC Q8 [facility] Hydralazine HCl (Apresoline) 10 mg IVP Q6H PRN PRN Reason: Systolic Blood Pressure >160 Last Admin: 05/26/17 08:37 Dose: 10 mg Sodium Chloride (Sodium Chloride 0.9%) 1,000 mls @ 50 mls/hr IV .Q20H [facility] Stop: 05/30/17 23:59 Last Admin: 05/29/17 02:03 Dose: 50 mls/hr Lisinopril (Zestril) 20 mg PO DAILY [facility] Last Admin: 05/29/17 09:12 Dose: Not Given Morphine Sulfate (Morphine) 1 mg IVP Q4 PRN PRN Reason: Pain, moderate (4-7) Last Admin: 05/27/17 23:03 Dose: 1 mg Rosuvastatin Calcium (Crestor) 20 mg PO HS [facility] Last Admin: 05/28/17 22:00 Dose: 20 mg - Labs Labs: 05/29/17 08:11 05/29/17 08:11 PT 12.5 SECONDS (9.7-12.2) H 05/28/17 06:17 INR 1.1 05/28/17 06:17
--- NOTE | 2017-05-29 20:04 | CP.PCM.CON ---
History of Present Illness - History of Present Illness History of Present Illness: pt is seen and examined, full consult is dictated #[id number] 1. Kathleen 2. s/p cardiac cath 3.proteinuria 4. htn 5. dehydration c/w ivf ns at 50-60 ml/hr bmp in am Past Patient History - Past Medical History & Family History Past Medical History?: Yes Past Family History: Reviewed and not pertinent - Past Social History Smoking Status: Never Smoked - CARDIAC Hx Hypertension: Yes - PULMONARY Hx Asthma: Yes - HEENT Hx Glaucoma: Yes - INTEGUMENTARY Hx Basil Cell: Yes (forehead) - MUSCULOSKELETAL/RHEUMATOLOGICAL Hx Arthritis: No Hx Back Pain: Yes Hx Falls: Yes Hx Fractures: No - GASTROINTESTINAL HX Swallowing Problems: Yes - PSYCHIATRIC Hx Substance Use: No - SURGICAL HISTORY Hx Surgeries: Yes Hx Eye Surgery: Yes - ANESTHESIA Hx Anesthesia: Yes Hx Anesthesia Reactions: No Meds Allergies/Adverse Reactions: Allergies Allergy/AdvReac Type Severity Reaction Status Date / Time Sulfa (Sulfonamide Allergy Mild RASH Verified 05/23/17 11:49 Antibiotics) - Medications Medications: Current Medications Amlodipine Besylate (Norvasc) 5 mg PO BID [facility] Last Admin: 05/29/17 18:12 Dose: 5 mg Aspirin (Ecotrin) 81 mg PO DAILY [facility] Last Admin: 05/29/17 09:12 Dose: Not Given Carvedilol (Coreg) 6.25 mg PO BID [facility] Last Admin: 05/29/17 18:12 Dose: 6.25 mg Clopidogrel Bisulfate (Plavix) 75 mg PO DAILY [facility] Last Admin: 05/29/17 09:12 Dose: Not Given Famotidine (Pepcid) 20 mg PO DAILY [facility] Last Admin: 05/29/17 09:13 Dose: Not Given Heparin Sodium (Porcine) (Heparin) 5,000 units SC Q8 [facility] Hydralazine HCl (Apresoline) 10 mg IVP Q6H PRN PRN Reason: Systolic Blood Pressure >160 Last Admin: 05/26/17 08:37 Dose: 10 mg Sodium Chloride (Sodium Chloride 0.9%) 1,000 mls @ 50 mls/hr IV .Q20H [facility] Stop: 05/30/17 23:59 Last Admin: 05/29/17 18:44 Dose: 50 mls/hr Lisinopril (Zestril) 20 mg PO DAILY [facility] Last Admin: 05/29/17 09:12 Dose: Not Given Morphine Sulfate (Morphine) 1 mg IVP Q4 PRN PRN Reason: Pain, moderate (4-7) Last Admin: 05/29/17 18:43 Dose: 1 mg Rosuvastatin Calcium (Crestor) 20 mg PO HS [facility] Last Admin: 05/28/17 22:00 Dose: 20 mg Results - Vital Signs Recent Vital Signs: Last Vital Signs Temp 98.2 F 05/29/17 17:45 Pulse 80 05/29/17 18:54 Resp 18 05/29/17 17:45 BP 170/67 H 05/29/17 17:45 Pulse Ox 93 L 05/29/17 17:45 - Labs Result Diagrams: 05/29/17 08:11 05/29/17 08:11 Labs: Laboratory Results - last 24 hr 05/29/17 05/29/17 08:11 08:11 WBC 11.5 H RBC 3.70 L Hgb 11.1 Hct 31.9 L MCV 86.3 MCH 30.0 MCHC 34.7 RDW 14.4 Plt Count 373 MPV 7.7 Neut % (Auto) 78.2 H Lymph % (Auto) 7.7 L [place] % (Auto) 8.1 Eos % (Auto) 5.5 H Baso % (Auto) 0.5 Neut # (Auto) 9.0 H Lymph # (Auto) 0.9 L [place] # (Auto) 0.9 H Eos # (Auto) 0.6 Baso # (Auto) 0.1 Neutrophils % (Manual) 79 H Lymphocytes % (Manual) 6 L Monocytes % (Manual) 10 Eosinophils % (Manual) 4 Basophils % (Manual) 1 Platelet Estimate Normal Sodium 140 Potassium 4.6 Chloride 108 H Carbon Dioxide 21 L Anion Gap 16 BUN 22 H Creatinine 1.5 H Est GFR ( Amer) 41 Est GFR (Non-Af Amer) 34 Random Glucose 87 Calcium 8.1 L Phosphorus 3.2 Magnesium 1.8 Total Bilirubin 0.5 AST 36 ALT 88 H D Alkaline Phosphatase 104 Total Protein 5.5 L Albumin 2.6 L Globulin 3.0 Albumin/Globulin Ratio 0.9 L
[2017-05-29 21:38] LABS: OSMOLALITY,URINE 488 mosm/kg (300-1000)
[2017-05-30 07:53] VITALS: RESP 18
[2017-05-30 08:15] LABS: HEMOGLOBIN 11.4 g/dL (11.0-16.0); MEAN CELL VOLUME 86.1 fL (81.0-99.0); MEAN CORPUSCULAR HEMOGLOBIN 29.6 pg (27.0-31.0); MEAN CORPUSCULAR HGB CONC 34.4 g/dL (33.0-37.0); MEAN PLATELET VOLUME 7.7 fL (7.2-11.7); RBC 3.84 Mil/uL (3.80-5.20); RED CELL DISTRIBUTION WIDTH 14.1 % (11.5-14.5); WHITE BLOOD COUNT 12.1 K/uL (4.8-10.8)
[2017-05-30 08:30] LABS: CALCIUM 8.1 mg/dl (8.6-10.4)
--- NOTE | 2017-05-30 08:54 | CON ---
DATE: 05/29/2017 RENAL CONSULTATION REQUESTED BY: Xiang Guzman MD and Froy Mejias MD REASON FOR RENAL CONSULTATION: Acute renal failure, status post cardiac cath. HISTORY OF PRESENT ILLNESS: Mrs. Fowler is 71 years old elderly female with a past medical history significant for hypertension, bilateral glaucoma, TIA who was admitted on 05/23/2017 to the emergency room with left hip pain. As per the patient, she slipped on a wet floor and fell 5 days ago prior to the admission. She landed on her left hip and back of the head. The patient normally walks without assistance, however, for the last 5 days prior to the admission, she required assistance due to left hip pain, and the patient is receiving Tylenol. The pain is worse with movement and better with rest, and the patient was admitted with chief complaints of weakness, rapid heart rate, palpitation, and nausea. In the emergency room, the patient was found to have elevated troponin levels 0.44 and admitted for NSTEMI. The patient is a poor historian at this time. Denies any nausea, vomiting, or diarrhea. Denies any abdominal pain. Denies any dysuria or frequency. The patient underwent cardiac cath this morning in [facility] by Dr. Froy Mejias, status post RCA stent placement. PAST MEDICAL HISTORY: Hypertension, bilateral glaucoma, TIA, basal cell skin cancer. PAST SURGICAL HISTORY: Eye surgery in 1967. SOCIAL HISTORY: Denies any smoking, alcohol, or drugs. PERSONAL HISTORY: She is . She has one daughter and two grandsons. She lives with her daughter. FAMILY HISTORY: Father with brain cancer. ALLERGIES: ALLERGIC TO SULFA. MEDICATIONS: Current medications in the house include clonidine, amlodipine 5 mg b.i.d. Current medication in the hospital as follows, hydralazine 10 mg IV every 6 hours p.r.n., Coreg 6.25 mg p.o. b.i.d., Crestor 20 mg p.o. at bedtime, aspirin 81 mg daily, subcu heparin 5000 units every 8 hours, morphine 1 mg IV every 4 hours p.r.n., amlodipine 5 mg p.o. b.i.d., Pepcid 20 mg p.o. daily, Plavix 75 mg p.o. daily, IV fluids normal saline at 50 mL/hour, and lisinopril on hold today. REVIEW OF SYSTEMS: Significant for generalized weakness and left hip pain and back pain, and also positive for elevated troponins and palpitation. All other review of systems are reviewed as per HPI and are negative. PHYSICAL EXAMINATION: VITAL SIGNS: As follows, blood pressure 170/67, pulse 79, respirations 18, temperature 98.2, saturation 93. Height 5 feet 4 inches, weight is 90 pounds. GENERAL: Mrs. Fowler is 71 years old elderly very cachectic female, thin built. HEENT: Left eye is normal. Conjunctivae pink. Sclerae anicteric. The patient is not able to open the right eye, resisting to open the right eye. Tongue is slightly dry. Trachea is midline. LUNGS: Symmetric on both sides. Bilateral breath sounds present. Clear to auscultation. CVS: [place] at the fifth intercostal space, midclavicular line. S1, S2 audible. No murmur or gallop. ABDOMEN: Normal in appearance, soft, tympanic. No guarding. No rigidity. No hepatosplenomegaly. EXECUTIVE MANAGER: The patient is alert, awake, and oriented x2. Sensory and motor system is grossly within normal limits. EXTREMITIES: No cyanosis, no clubbing, no edema. The patient is immobilized on the right knee joint. LABORATORY DATA: Her laboratory include as follows, as of 05/29/2017, WBC 11.4, hemoglobin 11.1, hematocrit is 31.9, platelets 373. Neutrophils 79, lymphs 6, and monos 10, eosinophils 4 , basophils 1. Sodium 140, potassium 4.6, chloride 108, CO2 of 21, BUN 22, creatinine 1.5, glucose 87, calcium 8.1, phosphorus 3.2, magnesium 1.8. Total bili 0.5, AST 36, ALT 88, alkaline phosphatase 104, total protein 5.5, albumin is 2.6. As of 05/28/2017, BUN and creatinine 19 and 1.3. As of 05/27/2017, BUN and creatinine 20 and 1.2. As of 05/26/2017, BUN and creatinine 23 and 1.2. Troponins 0.44, 0.42 and 0.398. Tylenol level is less than 10 on 05/24/2017. Cholesterol is 151, triglycerides 162, LDL is 49, HDL 44, T4 is 8.66, TSH is 2.69. Hepatitis B surface antigen negative. Core antibody IgM is negative, hep C antibody is negative. HIV 1 and 2 antibody screening is negative. Hepatitis C antibody IgM is negative. Urinalysis as of 05/22/2017, urine is yellow, clear, pH 5, specific gravity 1.026, protein 3+, glucose normal, ketones trace, blood negative, nitrites negative, bilirubin negative, urobilinogen normal, leukocyte esterase negative, wbc less than 1, rbc less than 1. Urine culture, no growth as of 05/24/2017, and blood culture x2 negative day five x2. IMPRESSION: In summary, Mrs. Fowler is a 71 years old elderly female with a history of hypertension, bilateral glaucoma, transient ischemic attack, status post fall in the house with left hip pain and back pain, and elevated troponin levels and also increased BUN and creatinine, status post cardiac cath this morning, and also drug-eluting stent placement in the RCA, started on gentle IV hydration. 1. Nonoliguric acute renal failure, most likely secondary to decreased intravascular volume secondary to decreased p.o. intake. 2. Coronary artery disease, status post cardiac cath with right RCA and drug-eluted stent placement this morning. 3. Hypertension. 4. Rule out dehydration and intravascular volume depletion. 5. Proteinuria, etiology is not clear. We will repeat urinalysis and also we will check ultrasound of the kidneys for size. PLAN: Continue IV fluids normal saline at 50 to 60 mL/hour and repeat BMP in a.m. Check urine lytes, osmolality, and we will hold lisinopril until renal function improves. We will follow with you. Thank you for allowing me to participate in your patient's care. Case discussed with air drier, Dr. Froy Mejias, in rounds this morning. Zechariah Jean MD
--- NOTE | 2017-05-30 12:21 | CP.PCM.PN ---
Subjective - Date & Time of Evaluation Date of Evaluation: 05/30/17 Time of Evaluation: 11:00 - Subjective Subjective: Patient s/p cath. Tolerating minimal PT without increased pain. No new complaints. Review of Systems - Review of Systems All systems: reviewed and no additional remarkable complaints except - Musculoskeletal Musculoskeletal: As Par HPI Objective - Vital Signs/Intake and Output Vital Signs (last 24 hours): Temp Pulse Resp BP Pulse Ox 98.0 F 73 18 138/67 98 05/30/17 07:00 05/30/17 11:05 05/30/17 07:00 05/30/17 10:53 05/30/17 11:05 Intake and Output: 05/30/17 05/30/17 06:59 18:59 Intake Total 800 Output Total 225 Balance 575 - Medications Medications: Current Medications Amlodipine Besylate (Norvasc) 5 mg PO BID [facility] Last Admin: 05/30/17 10:58 Dose: 5 mg Aspirin (Ecotrin) 81 mg PO DAILY [facility] Last Admin: 05/30/17 10:58 Dose: 81 mg Carvedilol (Coreg) 6.25 mg PO BID [facility] Last Admin: 05/30/17 10:58 Dose: 6.25 mg Clopidogrel Bisulfate (Plavix) 75 mg PO DAILY [facility] Last Admin: 05/30/17 10:58 Dose: 75 mg Famotidine (Pepcid) 20 mg PO DAILY [facility] Last Admin: 05/30/17 10:58 Dose: 20 mg Heparin Sodium (Porcine) (Heparin) 5,000 units SC Q8 [facility] Last Admin: 05/30/17 05:25 Dose: Not Given Hydralazine HCl (Apresoline) 10 mg IVP Q6H PRN PRN Reason: Systolic Blood Pressure >160 Last Admin: 05/26/17 08:37 Dose: 10 mg Sodium Chloride (Sodium Chloride 0.9%) 1,000 mls @ 50 mls/hr IV .Q20H [facility] Stop: 05/30/17 23:59 Last Admin: 05/30/17 10:58 Dose: 50 mls/hr Lisinopril (Zestril) 20 mg PO DAILY [facility] Last Admin: 05/29/17 09:12 Dose: Not Given Morphine Sulfate (Morphine) 1 mg IVP Q4 PRN PRN Reason: Pain, moderate (4-7) Last Admin: 05/30/17 10:59 Dose: 1 mg Rosuvastatin Calcium (Crestor) 20 mg PO HS [facility] Last Admin: 05/29/17 21:21 Dose: 20 mg - Labs Labs: 05/30/17 08:02 05/30/17 08:02 PT 12.5 SECONDS (9.7-12.2) H 05/28/17 06:17 INR 1.1 05/28/17 06:17 - Constitutional Appears: Well, No Acute Distress - Head Exam Head Exam: ATRAUMATIC - Neck Exam Neck Exam: Full ROM, Normal Inspection - Respiratory Exam Respiratory Exam: NORMAL BREATHING PATTERN - Cardiovascular Exam Additional comments: +DP/PT pulses - Extremities Exam Extremities Exam: Normal Capillary Refill, Normal Inspection Additional comments: calves soft NT neg homans sensation intact - Back Exam Back Exam: NORMAL INSPECTION, tenderness - Neurological Exam Neurological Exam: Alert, Awake, Oriented x3 Neuro motor strength exam: Left Lower Extremity: 5, Right Lower Extremity: 5 - Psychiatric Exam Psychiatric exam: Normal Affect, Normal Mood - Skin Skin Exam: Dry, Intact, Normal Color, Warm Assessment and Plan (1) Fracture of sacrum Assessment & Plan: will repeat xrays now that patient is weight bearing to check for displacement per Dr. Wei, consider neurosurg consultation due to sacral fracture Cont PT/VTE proph non operative from ortho perspective d/w DR. Wei, agrees with above Status: Acute (2) Fracture of right superior pubic ramus Status: Acute (3) Fall Status: Acute
[2017-05-30] MEDS: Sodium Chloride 0.9% 1,000 ML IV SCH (13:30)
--- NOTE | 2017-05-30 15:15 | RAD ---
PROCEDURE: Radiographs of the pelvis. HISTORY: f/u fractures after WB, inlet outlet COMPARISON: CT pelvis dated 05/25/2017. FINDINGS: BONES: Diffuse osteopenia. Known bilateral sacral fractures not well appreciated on the current examination. Questionable nondisplaced right superior pubic ramus fracture. JOINTS: Sacroiliac Joints: Unremarkable. Pubic Symphysis: Unremarkable. OTHER FINDINGS: None. IMPRESSION: Bilateral sacral and right superior pubic ramus fracture better identified on recent CT scan of the pelvis.
--- NOTE | 2017-05-30 16:40 | CP.PCM.DIS ---
Provider - Provider Date of Admission: 05/23/17 13:34 Attending physician: Xiang Guzman Jr, MD Primary care physician: PMD: none Consults: Ortho: Dr Wei Cardio: Dr Mejias Nephro: Dr Jean Time Spent in preparation of Discharge (in minutes): 36 Hospital Course - Lab Results Lab Results: Micro Results 05/23/17 16:30 Blood Blood Culture - Final NO GROWTH AFTER 5 DAYS 05/23/17 16:30 Blood Gram Stain - Final TEST NOT PERFORMED 05/23/17 16:00 Blood Blood Culture - Final NO GROWTH AFTER 5 DAYS 05/23/17 16:00 Blood Gram Stain - Final TEST NOT PERFORMED 05/24/17 Unknown Urine,Catheterized Urine Culture - Final No Growth (<1,000 CFU/ML) Most Recent Lab Values WBC 12.1 K/uL (4.8-10.8) H 05/30/17 08:02 RBC 3.84 Mil/uL (3.80-5.20) 05/30/17 08:02 Hgb 11.4 g/dL (11.0-16.0) 05/30/17 08:02 Hct 33.1 % (34.0-47.0) L 05/30/17 08:02 MCV 86.1 fL (81.0-99.0) 05/30/17 08:02 MCH 29.6 pg (27.0-31.0) 05/30/17 08:02 MCHC 34.4 g/dL (33.0-37.0) 05/30/17 08:02 RDW 14.1 % (11.5-14.5) 05/30/17 08:02 Plt Count 422 K/uL (130-400) H 05/30/17 08:02 MPV 7.7 fL (7.2-11.7) 05/30/17 08:02 Neut % (Auto) 78.2 % (50.0-75.0) H 05/29/17 08:11 Lymph % (Auto) 7.7 % (20.0-40.0) L 05/29/17 08:11 [place] % (Auto) 8.1 % (0.0-10.0) 05/29/17 08:11 Eos % (Auto) 5.5 % (0.0-4.0) H 05/29/17 08:11 Baso % (Auto) 0.5 % (0.0-2.0) 05/29/17 08:11 Neut # (Auto) 9.0 K/uL (1.8-7.0) H 05/29/17 08:11 Lymph # (Auto) 0.9 K/uL (1.0-4.3) L 05/29/17 08:11 [place] # (Auto) 0.9 K/uL (0.0-0.8) H 05/29/17 08:11 Eos # (Auto) 0.6 K/uL (0.0-0.7) 05/29/17 08:11 Baso # (Auto) 0.1 K/uL (0.0-0.2) 05/29/17 08:11 Neutrophils % (Manual) 79 % (50-75) H 05/29/17 08:11 Band Neutrophils % 1 % (0-2) 05/24/17 07:00 Lymphocytes % (Manual) 6 % (20-40) L 05/29/17 08:11 Monocytes % (Manual) 10 % (0-10) 05/29/17 08:11 Eosinophils % (Manual) 4 % (0-4) 05/29/17 08:11 Basophils % (Manual) 1 % (0-2) 05/29/17 08:11 Nucleated RBC % 1 % (0-0) H 05/27/17 07:22 Platelet Estimate Normal (NORMAL) 05/29/17 08:11 RBC Morphology Normal 05/28/17 06:17 PT 12.5 SECONDS (9.7-12.2) H 05/28/17 06:17 INR 1.1 05/28/17 06:17 D-Dimer, Quantitative 1964 ng/mlDDU (0-243) H 05/23/17 18:30 Sodium 140 mmol/L (132-148) 05/30/17 08:02 Potassium 4.4 mmol/L (3.6-5.2) 05/30/17 08:02 Chloride 110 mmol/L (98-107) H 05/30/17 08:02 Carbon Dioxide 21 mmol/L (22-30) L 05/30/17 08:02 Anion Gap 13 (10-20) 05/30/17 08:02 BUN 26 mg/dL (7-17) H 05/30/17 08:02 Creatinine 1.6 mg/dL (0.7-1.2) H 05/30/17 08:02 Est GFR ( Amer) 38 05/30/17 08:02 Est GFR (Non-Af Amer) 32 05/30/17 08:02 POC Glucose (mg/dL) 103 mg/dL (65-110) 05/25/17 12:31 Random Glucose 85 mg/dL (65-105) 05/30/17 08:02 Hemoglobin A1c 5.3 % (4.2-6.5) 05/23/17 17:17 Calcium 8.1 mg/dl (8.6-10.4) L 05/30/17 08:02 Phosphorus 3.6 mg/dL (2.5-4.5) 05/30/17 08:02 Magnesium 1.8 mg/dL (1.6-2.3) 05/30/17 08:02 Total Bilirubin 0.5 mg/dL (0.2-1.3) 05/29/17 08:11 AST 36 U/L (14-36) 05/29/17 08:11 ALT 88 U/L (9-52) H D 05/29/17 08:11 Alkaline Phosphatase 104 U/L (38-126) 05/29/17 08:11 Total Creatine Kinase 56 U/L (30-135) 05/23/17 22:08 CK-MB (Mass) 2.10 ng/mL (0.0-3.38) 05/23/17 22:08 Troponin I 0.3980 ng/mL (0.00-0.120) H* 05/23/17 22:08 Total Protein 5.5 g/dL (6.3-8.3) L 05/29/17 08:11 Albumin 2.6 g/dL (3.5-5.0) L 05/29/17 08:11 Globulin 3.0 gm/dL (2.2-3.9) 05/29/17 08:11 Albumin/Globulin Ratio 0.9 (1.0-2.1) L 05/29/17 08:11 Triglycerides 162 mg/dL (0-149) H 05/23/17 17:17 Cholesterol 151 mg/dL (0-199) 05/23/17 17:17 LDL Cholesterol Direct 49 mg/dL (0-129) 05/23/17 17:17 HDL Cholesterol 44 mg/dL (30-70) 05/23/17 17:17 Thyroxine (T4) 8.66 ug/dL (5.5-11.0) 05/23/17 17:17 TSH 3rd Generation 2.69 mIU/L (0.46-4.68) 05/23/17 17:17 Urine Color Yellow (YELLOW) 05/24/17 20:56 Urine Clarity Clear (Clear) 05/24/17 20:56 Urine pH 5.0 (5.0-8.0) 05/24/17 20:56 Ur Specific [place] 1.026 (1.003-1.030) 05/24/17 20:56 Urine Protein 3+ mg/dL (NEGATIVE) H 05/24/17 20:56 Urine Glucose (UA) Normal mg/dL (Normal) 05/24/17 20:56 Urine Ketones Trace mg/dL (NEGATIVE) 05/24/17 20:56 Urine Blood Negative (NEGATIVE) 05/24/17 20:56 Urine Nitrate Negative (NEGATIVE) 05/24/17 20:56 Urine Bilirubin Negative (NEGATIVE) 05/24/17 20:56 Urine Urobilinogen Normal mg/dL (0.2-1.0) 05/24/17 20:56 Ur Leukocyte Esterase Neg Alin/uL (Negative) 05/24/17 20:56 Urine WBC (Auto) < 1 /hpf (0-5) 05/24/17 20:56 Urine RBC (Auto) < 1 /hpf (0-3) 05/24/17 20:56 Urine Osmolality 488 mosm/kg (300-1000) 05/29/17 21:26 Ur Random Sodium 93 mmol/L 05/29/17 21:26 Acetaminophen < 10.0 ug/mL (10.0-30.0) L 05/24/17 00:52 Hepatitis A IgM Ab Negative (NEGATIVE) 05/23/17 17:17 Hep Bs Antigen Negative (NEGATIVE) 05/23/17 17:17 Hep B Core IgM Ab Negative (NEGATIVE) 05/23/17 17:17 Hepatitis C Antibody Negative (NEGATIVE) 05/23/17 17:17 HIV 1&2 Antibody Screen Negative (NEGATIVE) 05/23/17 17:17 - Hospital Course Hospital Course: HPI: Patient is a 71 year old female with a past medical history of hypertension, bilateral glaucoma, TIA, who presents to the ER with left hip pain. The patient states she slipped on a wet floor and fell 5 days ago. She landed on her left hip and the back of her head. The patient normally walks without store administrative assistant, however, for the past 5 days, she has required assistance due to the left hip pain. Patient states her daughter has been giving her 3 Tylenol per day, which has helped her pain. She states that the pain increases with movement and decreases with rest. Patient currently complains of weakness, rapid heart rate/palpitations, and nausea. In the ED, troponin was elevated at 0.444. Patient admitted for NSTEMI. She denies frequent falls, dizziness, headaches, new vision changes, dyspnea, chest pain, abdominal pain, vomiting, leg pain, leg swelling, dysuria, hematuria, diarrhea, constipation, hematochezia , melena. PMD: Dr. Moeller in [facility] (recently moved to [place]) PMHx: hypertension, bilateral glaucoma, TIA (patient states her doctor told her she had a stroke but does not have any symptoms- 6 years ago), basal cell skin cancer SurgHx: "eye surgery" (1967) FamHx: father- brain cancer SocHx: denies tobacco, alcohol, and drug use; lives in [place] with duaghter and grandson; retired. Allergies: Sulfa Medications: Clonidine 0.1mg PO HS, Amlodipine 5mg PO BID HOSPITAL COURSE: 71 year old female with PMHx of HTN, bilateral glaucoma, and TIA presented to hospital with left hip pain s/p fall on wet floor. Upon imaging of hip, lower extremity, lumbar spine, abdomen and head patient was diagnosed with left sacral ala fracture, possible right sacral ala fracture, and suspected fracture of right pubic symphysis. In the ED patient's troponin was elevated to .444 and was diagnosed with NSTEMI. Dr. Mejias from cardiology was consulted. A nuclear stress test and echo were performed. Patient had a low ejection fraction and was sent for cardiac cath at [facility]. Patient underwent PCI wtih stent placement because of a 95% stenosis of large ramus, after stent placement she returned to [facility]. Dr. Wie from surgery was consulted and did not recommend orthopedic intervention at this time. Ortho recommended neurosurgery consult, however neurosurgery stated the fracture is not within their domain. Upon discharge after a seven day admission, patient's pain had improved immensely and her creatinine trended down. She is to be discharged to [facility] to continue rehab and weight bearing exercises. Patient's chronic conditions were treated with Norvasc 5mg PO BID, ASA 81 mg daily and Crestor 20mg PO HS and Coreg 6.25mg PO BID. Plavix 75mg PO daily was added post PCI with instructions for patient to continue plavix for 1 year and to follow up with cardiology. NSTEMI (non-ST elevated myocardial infarction) Assessment and Plan: Patient scheduled for cardiac cath on 05/28/[address] Mejias Cardiology consulted- Dr. Mejias, help appreciated Troponin 0.444-->0.427-->0.3980 EKG: sinus tachycardia @101bpm; LVH In the ED, ASA 325mg PO given Continue to monitor on telemetry TSH/Free T4: 2.69/8.66 Lipid panel: TG 162, Chol 151, LDL 49, HDL 44 Echocardiogram: EF 40%, Mild global hypokinesis, LVH Stress test 05/25/17 NEGATIVE * Due to Non sustained VT runs and abnormal EF patient to go for Cardiac Cath Coreg 6.25mg PO BID (increased from 3.25 PO BID due to HTN) Crestor 20mg PO HS Amlodipine 5mg PO BID ASA 81mg PO daily Fall Fracture of sacrum Assessment and Plan: Orthopedic surgery consulted, Dr. Wei, help appreciated * Per ortho, patient has a Nondisplaced left sacral ala fracture. Possible right sacral ala fracture. Suspect fracture, nondisplaced, involving right- sided pubic symphysis. * sacral and ramus fx are non operative, conservative mgmt with pain medication , VTE proph, and progressive mobilization and ambulation training * Dr Wei recommends neurosurgery consultation due to sacral fracture - neurosurgery was consulted but stated this is not within their domain PT/OT eval and treat Encourage OOB to chair Weight bearing exercises as tolerated Pelvis CT: Nondisplaced left sacral ala fracture. Possible right sacral ala fracture. Suspect fracture, nondisplaced, involving right-sided pubic symphysis. Hip xray: No evidence of acute displaced fracture nor dislocation. Lower extremity CT: No evidence of acute displaced fracture nor dislocation. Lumbar spine xray: No acute fractures. Minor multilevel degenerative spondylosis. Head CT: No acute intracranial hemorrhage. Moderate chronic white matter ischemic changes as above. 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 Followup studies recommended if acute infarct suspected clinically; Mild moderate generalized volume loss. There is oblong appearance of the right globe; recommend ophthalmologic - fundoscopic examination two rule out glaucoma. Brain MRI: no acute intracranial abnormality; no evidence for acute infarction; moderate chronic microangiopathic changes and mild age-related global parenchymal volume loss. Hypertension Poorly controlled Hydralazine IV 40mg Q6H PRN Home medications: amlodipine 5mg PO BID, clonidine 0.1mg PO HS Continue amlodipine 5mg PO BID Increased Lisinopril to 20mg PO daily (start 05/27) Continue to monitor Elevated D-Dimer Ddimer: 1964 VQ scan: low probability of PE Leukocytosis, resolved Assessment and Plan: Leukocytosis w/bandemia at admission (WBC 13.5, bands 3) Afebrile UA: 3+ protein Urine cx: NEGATIVE Blood cx: NEGATIVE Elevated transaminase level Assessment and Plan: Trending down 05/27: (42/159) At admission: AST/ALT: 673/1271 Hepatitis panel: negative HIV1/2: negative Acetaminophen level: <10 Abdominal US: fatter liver infiltrate; 1/5cm simple cyst in right lobe of liver ; 1cm simple cyst in lower pole of right kidney Prophylactic measure Assessment and Plan: DVT: SCDs, Lovenox 40mg SC daily GI: Protonix 40mg PO daily Heart healthy diet - NPO at OR on 05/28 for cardiac cath PT/OT NS@75mls/hr Discharge Exam - Head Exam Head Exam: ATRAUMATIC - Additional Findings Additional findings: - Constitutional Appears: No Acute Distress, Chronically Ill - Head Exam Head Exam: ATRAUMATIC (no tenderness, skin lesions, ecchymosis noted), NORMAL INSPECTION - Eye Exam Eye Exam: EOMI (right eye). absent: Normal appearance (glaucoma b/l; blind in right eye) - ENT Exam ENT Exam: Mucous Membranes Dry Additional comments: poor dentition; hard of hearing b/l - Respiratory Exam Respiratory Exam: Clear to Auscultation Bilateral, NORMAL BREATHING PATTERN. absent: Rales, Rhonchi, Wheezes, Respiratory Distress - Cardiovascular Exam Cardiovascular Exam: Tachycardia, Irregular Rhythm, +S1, +S2 - GI/Abdominal Exam GI & Abdominal Exam: Normal Bowel Sounds, Soft. absent: Distended, Firm, Guarding, Tenderness - Extremities Exam Extremities exam: Positive for: pedal pulses present. Negative for: pedal edema , tenderness Additional comments: Bilateral LE: no tenderness, ecchymosis, erythema, abrasions, contusions and skin lesions noted. Full ROM of left LE; pain in left hip when actively and passively raising right LE; pulses present b/l. - Back Exam Back exam: absent: tenderness - Neurological Exam Neurological exam: Alert, CN II-XII Intact, Oriented x3 Additional comments: Oriented to person, place, time, president; vp customer development intact; Full ROM and strength of UE (b/l) and left LE; - Psychiatric Exam Psychiatric exam: Flat Affect - Skin Skin Exam: Dry, Warm Discharge Plan - Follow Up Plan Condition: FAIR Disposition: HOME/ ROUTINE Additional Instructions: Patient is medically stable to go to Sub-Acute Rehab. Please continue the following medications: 1. Amlodipine 5mg PO QD 2. Carvedilol 6.25mg PO BID 3. Famotidine 20mg PO QD 4. Heparin 5000u SC Q8 (okay to change to lovenox 40mg SC QD if heparin not available) 5. Lisinopril 20mg PO QD 6. Morphine 1mg IVP Q4H PRN as needed for severe pain 7. Rosuvastatin 20mg PO HS 8. Aspirin 81mg PO QD 9. Plavix 75mg PO QD Upon release from rehab patient will need to establish care with a Primary Care Doctor to continue her care. She currently does not have a Primary Medical Doctor. Upon release from rehab patient will need assistance at home given her recent fall and fracture in sacral area. If symptoms worsen please go to your nearest emergency department.
--- NOTE | 2017-05-30 18:19 | CP.PCM.PN ---
Subjective - Date & Time of Evaluation Date of Evaluation: 05/30/17 Time of Evaluation: 18:19 - Subjective Subjective: pt is seen and examined, follow up consult is dictated #[id number] Objective - Vital Signs/Intake and Output Vital Signs (last 24 hours): Temp Pulse Resp BP Pulse Ox 98.1 F 65 20 125/64 95 05/30/17 15:00 05/30/17 16:23 05/30/17 15:00 05/30/17 15:00 05/30/17 15:00 Intake and Output: 05/30/17 05/30/17 06:59 18:59 Intake Total 800 700 Output Total 225 600 Balance 575 100 - Medications Medications: Current Medications Amlodipine Besylate (Norvasc) 5 mg PO BID [facility] Last Admin: 05/30/17 10:58 Dose: 5 mg Aspirin (Ecotrin) 81 mg PO DAILY [facility] Last Admin: 05/30/17 10:58 Dose: 81 mg Carvedilol (Coreg) 6.25 mg PO BID [facility] Last Admin: 05/30/17 10:58 Dose: 6.25 mg Clopidogrel Bisulfate (Plavix) 75 mg PO DAILY [facility] Last Admin: 05/30/17 10:58 Dose: 75 mg Famotidine (Pepcid) 20 mg PO DAILY [facility] Last Admin: 05/30/17 10:58 Dose: 20 mg Heparin Sodium (Porcine) (Heparin) 5,000 units SC Q8 [facility] Last Admin: 05/30/17 14:24 Dose: Not Given Hydralazine HCl (Apresoline) 10 mg IVP Q6H PRN PRN Reason: Systolic Blood Pressure >160 Last Admin: 05/26/17 08:37 Dose: 10 mg Sodium Chloride (Sodium Chloride 0.9%) 1,000 mls @ 50 mls/hr IV .Q20H [facility] Stop: 05/30/17 23:59 Last Admin: 05/30/17 13:30 Dose: 50 mls/hr Lisinopril (Zestril) 20 mg PO DAILY [facility] Last Admin: 05/29/17 09:12 Dose: Not Given Morphine Sulfate (Morphine) 1 mg IVP Q4 PRN PRN Reason: Pain, moderate (4-7) Last Admin: 05/30/17 10:59 Dose: 1 mg Rosuvastatin Calcium (Crestor) 20 mg PO HS [facility] Last Admin: 05/29/17 21:21 Dose: 20 mg - Labs Labs: 05/30/17 08:02 05/30/17 08:02 PT 12.5 SECONDS (9.7-12.2) H 05/28/17 06:17 INR 1.1 05/28/17 06:17
--- NOTE | 2017-05-30 22:07 | CP.PCM.PN ---
Subjective - Date & Time of Evaluation Date of Evaluation: 05/30/17 Time of Evaluation: 09:10 - Subjective Subjective: Patient seen and evaluated Denies chest pain S/P Ramus PCI and MERLIN ASA 81, Statins and B blockers for life Plavix 75 mg po daily for 1 year F/U cardiology clinic in 2-4 weeks Physical Exam - Head Exam Head Exam: ATRAUMATIC - Additional Findings Additional findings: - Constitutional Appears: No Acute Distress, Chronically Ill - Head Exam Head Exam: ATRAUMATIC (no tenderness, skin lesions, ecchymosis noted), NORMAL INSPECTION - Eye Exam Eye Exam: EOMI (right eye). absent: Normal appearance (glaucoma b/l; blind in right eye) - ENT Exam ENT Exam: Mucous Membranes Dry Additional comments: poor dentition; hard of hearing b/l - Respiratory Exam Respiratory Exam: Clear to Auscultation Bilateral, NORMAL BREATHING PATTERN. absent: Rales, Rhonchi, Wheezes, Respiratory Distress - Cardiovascular Exam Cardiovascular Exam: Tachycardia, Irregular Rhythm, +S1, +S2 - GI/Abdominal Exam GI & Abdominal Exam: Normal Bowel Sounds, Soft. absent: Distended, Firm, Guarding, Tenderness - Extremities Exam Extremities exam: Positive for: pedal pulses present. Negative for: pedal edema , tenderness Additional comments: Bilateral LE: no tenderness, ecchymosis, erythema, abrasions, contusions and skin lesions noted. Full ROM of left LE; pain in left hip when actively and passively raising right LE; pulses present b/l. - Back Exam Back exam: absent: tenderness - Neurological Exam Neurological exam: Alert, CN II-XII Intact, Oriented x3 Additional comments: Oriented to person, place, time, president; lace winder intact; Full ROM and strength of UE (b/l) and left LE; - Psychiatric Exam Psychiatric exam: Flat Affect - Skin Skin Exam: Dry, Warm Objective - Vital Signs/Intake and Output Vital Signs (last 24 hours): Temp Pulse Resp BP Pulse Ox 98.6 F 81 20 156/79 H 96 05/30/17 18:24 05/30/17 18:24 05/30/17 18:24 05/30/17 18:24 05/30/17 18:24 Intake and Output: 05/30/17 05/31/17 18:59 06:59 Intake Total 700 Output Total 600 Balance 100 - Medications Medications: Current Medications Amlodipine Besylate (Norvasc) 5 mg PO BID [facility] Last Admin: 05/30/17 18:24 Dose: 5 mg Aspirin (Ecotrin) 81 mg PO DAILY [facility] Last Admin: 05/30/17 10:58 Dose: 81 mg Carvedilol (Coreg) 6.25 mg PO BID [facility] Last Admin: 05/30/17 18:24 Dose: 6.25 mg Clopidogrel Bisulfate (Plavix) 75 mg PO DAILY [facility] Last Admin: 05/30/17 10:58 Dose: 75 mg Famotidine (Pepcid) 20 mg PO DAILY [facility] Last Admin: 05/30/17 10:58 Dose: 20 mg Heparin Sodium (Porcine) (Heparin) 5,000 units SC Q8 [facility] Last Admin: 05/30/17 21:17 Dose: 5,000 units Hydralazine HCl (Apresoline) 10 mg IVP Q6H PRN PRN Reason: Systolic Blood Pressure >160 Last Admin: 05/26/17 08:37 Dose: 10 mg Sodium Chloride (Sodium Chloride 0.9%) 1,000 mls @ 50 mls/hr IV .Q20H [facility] Stop: 05/30/17 23:59 Last Admin: 05/30/17 13:30 Dose: 50 mls/hr Lisinopril (Zestril) 20 mg PO DAILY [facility] Last Admin: 05/29/17 09:12 Dose: Not Given Morphine Sulfate (Morphine) 1 mg IVP Q4 PRN PRN Reason: Pain, moderate (4-7) Last Admin: 05/30/17 18:29 Dose: 1 mg Rosuvastatin Calcium (Crestor) 20 mg PO HS [facility] Last Admin: 05/30/17 21:17 Dose: 20 mg - Labs Labs: 05/30/17 08:02 05/30/17 08:02 PT 12.5 SECONDS (9.7-12.2) H 05/28/17 06:17 INR 1.1 05/28/17 06:17 Assessment and Plan - Assessment and Plan (Free Text) Assessment: Patient seen and evaluated Denies chest pain S/P Ramus PCI and MERLIN ASA 81, Statins and B blockers for life Plavix 75 mg po daily for 1 year F/U cardiology clinic in 2-4 weeks
--- NOTE | 2017-05-31 02:24 | PN ---
DATE: 05/30/2017 The patient is located in room 569, bed A. Requested by . REASON FOR FOLLOWUP: Acute renal failure, for further evaluation.. REASON FOR FOLLOWUP: Mrs. Fowler is a 71-year-old elderly female with a past medical history significant for hypertension, bilateral glaucoma, TIA with right eye blind, status post fall with chief complaints of pain in the left hip and difficulty to ambulate and elevated troponin levels. The patient underwent a cardiac cath and stent placement in the right RCA yesterday in [facility] by Dr. Froy Mejias. The patient is more alert, awake, and following commands appropriately. No chest pain, no palpitation. No fever. No cough. No abdominal pain. No nausea, vomiting, diarrhea. Complains of slight pain in the right groin region. PHYSICAL EXAMINATION: VITAL SIGNS: As follows: Blood pressure 125/64, pulse 72, respiration 20, temperature 98.1, saturation 95%. Height 5 feet 4 inches, weight is 90 pounds. GENERAL: Mrs. Fowler is a 71-year-old elderly, very thin built female, moderately built, moderately nourished, not in distress. HEENT: Pupils normal and reactive to light and accommodation. Conjunctivae pink. Sclerae anicteric. Right eye is blind. Left eye is normal. Tongue is moist and trachea is midline. LUNGS: Symmetric on both sides. Bilateral breath sounds present. Clear to auscultation. CVS: [place] at the fifth intercostal space, midclavicular area. S1 and S2 audible. No murmur or gallop. ABDOMEN: Normal in appearance, soft, tympanic. No guarding. No hepatosplenomegaly. NURSERY NURSE: The patient is alert, awake, oriented x3. Nonfocal neuro examination. Cranial nerves II through grossly intact. Sensory and motor system is within normal limits. EXTREMITIES: No cyanosis, no clubbing, no edema. CURRENT MEDICATIONS: Include as follows: Hydralazine 10 mg IV every 6 hours p.r.n., Coreg 6.25 mg p.o. b.i.d., Crestor 20 mg at bedtime, aspirin 81 mg daily, subcu heparin 5000 q.8 hours, morphine 1 mg IV every 4 hours p.r.n., Norvasc 5 mg p.o. b.i.d., Pepcid 20 mg p.o. daily, Plavix 75 mg p.o. daily, IV fluids normal saline at 50 cc/hour, and lisinopril is on hold. LABORATORY DATA: Include as follows: As of 05/30/2017: WBC 12.1, hemoglobin 11.4, hematocrit is 33.1, platelets 422. Sodium 140, potassium 4.4, chloride 110, CO2 21, BUN 26, creatinine 1.6, glucose 85, calcium 8.1, phosphorus 3.6, magnesium 1.8, urine osmolality 488, and urine sodium is 93. As of 05/24/2017: Urine culture is negative, blood culture x2 is negative day five x2. In summary, Mrs. Fowler is a 71-year-old elderly, thin-built female with hypertension, glaucoma, TIA, status post fall with pain in the left leg, found to have elevated troponin levels and status post cardiac cath and stent placement in the RCA yesterday, with elevated BUN, creatinine. 1. Nonoliguric acute renal failure most likely secondary to intravascular depletion, cannot rule out ATN. 2. Hypertension. Blood pressure stable. Continue to hold lisinopril and continue IV fluids normal saline at 50 cc/hour, increase p.o. fluids. 3. NSTEMI, status post cardiac cath with RCA stent placement. Case discussed with Dr. Froy Mejias in rounds. Continue to monitor BMP in a.m. if the patient is in the hospital. Thank you for allowing me to participate in your patient's care. Zechariah Jean MD
[2017-05-31 11:14] VITALS: BP 135/72; PULSE 77; TEMP 98.2; O2SAT 95
--- NOTE | 2017-05-31 14:56 | CARD ---
APPROVED REPORT EKG Measurement Heart [id number] <Conclusion> Sinus rhythm with occasional premature ventricular complexes Septal infarct, age undetermined Abnormal ECG
== END 2017-05-31 02:15 | disposition home or self-care (01) | DRG 247 ==
LOC: C.ER 10:18 → C.6T 13:34 → C.5S 05-24 11:12
PROVIDERS: ADMIT Internal Medicine; ATTEND Internal Medicine
PROC: 4A023N7 Measurement of Cardiac Sampling and Pressure, Left Heart, Percutaneous Approach (ICD-10-PCS; 2017-05-28)
PROC: B2111ZZ Fluoroscopy of Multiple Coronary Arteries using Low Osmolar Contrast (ICD-10-PCS; 2017-05-28)
PROC: 027034Z Dilation of Coronary Artery, One Artery with Drug-eluting Intraluminal Device, Percutaneous Approach (ICD-10-PCS; principal; 2017-05-29)
PROC: 4A023N7 Measurement of Cardiac Sampling and Pressure, Left Heart, Percutaneous Approach (ICD-10-PCS; 2017-05-29)
PROC: B2111ZZ Fluoroscopy of Multiple Coronary Arteries using Low Osmolar Contrast (ICD-10-PCS; 2017-05-29)
DX: I21.4 Non-ST elevation (NSTEMI) myocardial infarction (principal); S32.110A Nondisplaced Zone I fracture of sacrum, initial encounter for closed fracture; S32.591A Other specified fracture of right pubis, initial encounter for closed fracture; N17.9 Acute kidney failure, unspecified; I47.2 Ventricular tachycardia; W01.0XXA Fall on same level from slipping, tripping and stumbling without subsequent striking against object, initial encounter; N18.9 Chronic kidney disease, unspecified; I12.9 Hypertensive chronic kidney disease with stage 1 through stage 4 chronic kidney disease, or unspecified chronic kidney disease; D72.825 Bandemia; R74.0 Nonspecific elevation of levels of transaminase and lactic acid dehydrogenase [LDH]; Z86.73 Personal history of transient ischemic attack (TIA), and cerebral infarction without residual deficits; H40.9 Unspecified glaucoma; M25.552 Pain in left hip; Z85.828 Personal history of other malignant neoplasm of skin; Z88.2 Allergy status to sulfonamides; J45.909 Unspecified asthma, uncomplicated; H54.61 Unqualified visual loss, right eye, normal vision left eye; R79.1 Abnormal coagulation profile; N28.1 Cyst of kidney, acquired; K76.89 Other specified diseases of liver; M54.9 Dorsalgia, unspecified; R80.9 Proteinuria, unspecified; E86.0 Dehydration; E78.5 Hyperlipidemia, unspecified; I25.119 Atherosclerotic heart disease of native coronary artery with unspecified angina pectoris